=== PATIENT | female | born 1955 | race Hispanic/Latino ===

== ENCOUNTER 2022-03-14 15:26 | Emergency (ER) | payer MEDICARE, OTHER ==
[~2022-03-14] VITALS: Ht 152.4 cm; Wt 77.1 kg
[2022-03-14 16:24] LABS: BASOPHILS % (AUTO) 0.1 % (0.0-5.0); HEMATOCRIT 31.7 % (36-48); LYMPHOCYTES % (AUTO) 5.9 % (21.0-51.0); MEAN CORPUSCULAR HEMOGLOBIN 31.5 pg (27.0-33.0); MEAN CORPUSCULAR HGB CONC 33.1 g/dL (32.0-36.0); MEAN CORPUSCULAR VOLUME 95.2 fL (79-99); NEUTROPHILS % (AUTO) 83.3 % (40.0-77.0); PLATELET COUNT (AUTO) 62 K/uL (130-400); RED BLOOD CELL COUNT(AUTO) 3.33 MIL/uL (4.00-5.50); RED CELL DISTRIBUTION WIDTH 13.9 % (11.0-15.5); WHITE BLOOD COUNT (AUTO) 10.3 K/uL (4.8-10.8)
[2022-03-14 16:42] LABS: CREATININE 1.1 mg/dL (0.5-1.5); POTASSIUM 4.1 mmol/L (3.5-5.1)
[2022-03-14 16:50] LABS: ALBUMIN 3.1 g/dL (3.5-5.0); TOTAL PROTEIN, SERUM 6.5 g/dL (6.0-8.3)
[2022-03-14 16:51] VITALS: BP 116/59
[2022-03-14 18:21] LABS: APPEARANCE,URINE TURBID (CLEAR); BILIRUBIN,URINE NEGATIVE (NEGATIVE); COLOR,URINE LIGHT-ORANGE (YELLOW); GLUCOSE, URINE (UA) NEGATIVE (NEGATIVE); KETONES,URINE NEGATIVE (NEGATIVE); LEUKOCYTE ESTERASE ,URINE 500 Leu/uL (NEGATIVE); NITRATE,URINE NEGATIVE (NEGATIVE); OCCULT BLOOD,URINE MODERATE (NEGATIVE); PH,URINE 5.5 (5.0-8.0); PROTEIN,URINE 50 mg/dL (NEGATIVE); UROBILINOGEN,URINE 0.2 mg/dL (0.2-1.0)
[2022-03-14 18:28] LABS: BACTERIA,URINE FEW /HPF (None Seen); MUCUS,URINE RARE LPF (None Seen); SQUAMOUS EPITHELIAL CELL,UR RARE /HPF (0-2); TRANSITIONAL EPI CELLS,URINE FEW /HPF (None Seen); WBC,URINE TNTC /HPF (0-1)
[2022-03-14] MEDS ORDERED: DOCU-116 PO (19:05)
[2022-03-14] MEDS ORDERED: PANT40TA55 PO (19:05)
== END 2022-03-14 19:18 | disposition home or self-care (01) ==
LOC: EDH 15:26
DX: K59.00 Constipation, unspecified (principal); K52.9 Noninfective gastroenteritis and colitis, unspecified; Z20.822 Contact with and (suspected) exposure to COVID-19; E11.9 Type 2 diabetes mellitus without complications; Z79.899 Other long term (current) drug therapy
CPT/HCPCS: 99284; 74176; 71045; 87635; 84484; 80053; 82140; 85025; 87077; 87088; 87186; 87804 ×2; 81001; 36415; 93005 ×2; C9803

== ENCOUNTER → 2024-01-17 | Outpatient (CLI) | payer OTHER, MEDICARE ==
[~2024-01-17] MED LIST: DOCU-116 PO; IOHEXOL 350 MG/ML 100ML INFUS..BTL IV ONE; PANT40TA55 PO
--- NOTE | 2024-01-17 12:08 | HMCIMG ---
CT ABDOMEN/PELVIS W/WO CONTRAS REASON: LOWER ABD PAIN COMPARISON: 03/14/2022 TECHNIQUE: Images are obtained from lung bases to symphysis pubis following IV contrast, 100 cc Omnipaque 350. Oral contrast was demonstrated as well. FINDINGS: Lung bases are clear. There are no focal liver lesions. There are normal-appearing kidneys.. There is moderate splenomegaly, unchanged. Pancreas appears unremarkable. There has been a previous cholecystectomy. Bowel loops appear unremarkable. This includes particular attention to the rectosigmoid colon. There has been a previous appendectomy. There is no evidence of free fluid or intraperitoneal air. There are no focal fluid collections. Aorta and retroperitoneum appear normal as do pelvic soft tissue structures. The anterior abdominal wall is intact. Osseous structures appear unremarkable. IMPRESSION: 1. Splenomegaly, unchanged. 2. Absent gallbladder and appendix. 3. Otherwise unremarkable postcontrast CT abdomen and pelvis. CT was performed with one or more following dose reduction techniques: automated exposure control, adjustment of the mA and kv according to patient's size, or use of a iterative reconstruction technique.
== END | disposition home or self-care (01) ==
LOC: RAH 08:46
PROVIDERS: ATTEND Internal Medicine Gastroenterology
DX: R16.1 Splenomegaly, not elsewhere classified (principal); R10.30 Lower abdominal pain, unspecified; Z90.49 Acquired absence of other specified parts of digestive tract
CPT/HCPCS: 74178; Q9967

== ENCOUNTER 2024-06-13 05:43 | Day surgery (SDC) | payer OTHER, MEDICARE ==
[2024-06-13] VITALS (12 sets, daily range): BP systolic 100–159; BP diastolic 51–88; PULSE 61–72; RESP 14–20; TEMP 97.1–97.6
[~2024-06-13] VITALS: Ht 152.4 cm; Wt 88.5 kg
[~2024-06-13 05:43] MED LIST changes: -IOHEXOL 350 MG/ML 100ML INFUS..BTL IV ONE
[2024-06-13] MEDS: 0.9%NACL 1000ML 1,000 ML IV ONE (06:29)
[2024-06-13] MEDS ORDERED: ONDA-104 PO (06:35)
[2024-06-13] MEDS ORDERED: BENZ200C53 PO (06:35)
[2024-06-13] MEDS ORDERED: LINA145C PO (06:35)
[2024-06-13] MEDS ORDERED: ACET-2247 PO (06:35)
[2024-06-13] MEDS ORDERED: LACT-441 PO (06:35)
[2024-06-13] MEDS ORDERED: DICL100G60 TP (06:35)
[2024-06-13] MEDS ORDERED: LOSA25TA41 PO (06:35)
[2024-06-13] MEDS ORDERED: ASCO500C18 PO (06:35)
[2024-06-13] MEDS ORDERED: ALEN70TA80 PO (06:35)
[2024-06-13] MEDS ORDERED: FLUT16H NS (06:35)
[2024-06-13] MEDS ORDERED: proPOFol 10 MG/ML 20ML VIAL IV ONE (07:52)
--- NOTE | 2024-06-13 09:42 | NUR ---
Full and complete discharge instructions given to Patient and Family both verbally and in writing. Explained GI procedure precautions and follow up. All questions answered. PIV removed with catheter tip intact. Home with Family W/C to POV.
== END 2024-06-13 09:35 | disposition home or self-care (01) ==
LOC: ENDO 05:43 → DAH 05:43 → ENDO 09:35
PROVIDERS: ATTEND Internal Medicine Gastroenterology
DX: R10.30 Lower abdominal pain, unspecified (principal); D12.3 Benign neoplasm of transverse colon; D12.2 Benign neoplasm of ascending colon; K62.1 Rectal polyp; K57.30 Diverticulosis of large intestine without perforation or abscess without bleeding; K62.89 Other specified diseases of anus and rectum; I10 Essential (primary) hypertension; K29.90 Gastroduodenitis, unspecified, without bleeding; K74.60 Unspecified cirrhosis of liver; I85.10 Secondary esophageal varices without bleeding; E66.09 Other obesity due to excess calories; Z68.37 Body mass index [BMI] 37.0-37.9, adult; Z90.49 Acquired absence of other specified parts of digestive tract; Z90.710 Acquired absence of both cervix and uterus; Z79.899 Other long term (current) drug therapy
CPT/HCPCS: 45380; 45385; J7030; J2704; A4620; A4215; J3490

== ENCOUNTER 2024-07-03 11:45 | Inpatient (IN) | payer OTHER, MEDICARE ==
[~2024-07-03] VITALS: Ht 152.4 cm; Wt 88.7 kg
[~2024-07-03 11:45] MED LIST changes: +ACET-2247 PO; +ALEN70TA80 PO; +ASCO500C18 PO; +BENZ200C53 PO; +CIPR500T10 PO; +DICL100G60 TP; -DOCU-116 PO; +FLUT16H NS; +LACT-441 PO; +LINA145C PO; +LOSA25TA41 PO; +ONDA-104 PO; -PANT40TA55 PO
[2024-07-03 12:15] LABS: BASOPHILS # (AUTO) 0.01 K/uL (0.00-0.20); BASOPHILS % (AUTO) 0.4 % (0.0-5.0); EOSINOPHILS # (AUTO) 0.08 K/uL (0.00-0.70); EOSINOPHILS % (AUTO) 3.4 % (0.0-8.0); HEMATOCRIT 34.5 % (36-48); IMMATURE GRANULOCYTE ABSOLUTE 0.01 K/uL (0-1); LYMPHOCYTES # (AUTO) 0.5 K/uL (1.0-4.8); LYMPHOCYTES % (AUTO) 22.8 % (21.0-51.0); MEAN CORPUSCULAR HEMOGLOBIN 28.7 pg (27.0-33.0); MEAN CORPUSCULAR HGB CONC 32.5 g/dL (32.0-36.0); MEAN CORPUSCULAR VOLUME 88.5 fL (79-99); MONOCYTES # (AUTO) 0.2 K/uL (0.1-1.0); MONOCYTES % (AUTO) 10.1 % (3.0-13.0); NEUTROPHILS # (AUTO) 1.5 K/uL (1.8-7.7); NEUTROPHILS % (AUTO) 62.9 % (40.0-77.0); PLATELET COUNT (AUTO) 45 K/uL (130-400); RED CELL DISTRIBUTION WIDTH 14.1 % (11.0-15.5); WHITE BLOOD COUNT (AUTO) 2.4 K/uL (4.8-10.8)
[2024-07-03 12:46] LABS: CREATININE 0.9 mg/dL (0.5-1.0)
[2024-07-03 13:29] LABS: RAPID GROUP A STREP negative (NEGATIVE)
--- NOTE | 2024-07-03 13:36 | EKG ---
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
[2024-07-03 13:39] LABS: COVID19 (SARS ANTIGEN RAPID) PRESUMPTIVE NEGATIVE (NEGATIVE)
[2024-07-03 13:40] LABS: INFLUENZA TYPE A Negative For Type A (NEGATIVE); INFLUENZA TYPE B Negative For Type B (NEGATIVE)
[2024-07-03 13:45] LABS: BAND NEUTROPHILS % (MANUAL) 5 % (0-2); BASOPHILS % (MANUAL) 3 % (0-2); EOSINOPHILS % (MANUAL) 5 % (1-6); LYMPHOCYTES % (MANUAL) 20 % (22-44); MONOCYTES % (MANUAL) 6 % (2-9); SEGMENTED NEUTROPHILS % 61 % (40-70); TOTAL CELLS COUNTED 100
[2024-07-03 13:46] LABS: MAN.DIFF COMMENT-IMPRESSION MANUAL DIFFERENTIAL; PLATELET MORPHOLOGY COMMENT MARKED DECREASE; WBC MORPHOLOGY CONSISTENT W/DIFF
[2024-07-03 14:26] LABS: APPEARANCE,URINE CLEAR (CLEAR); BILIRUBIN,URINE NEGATIVE (NEGATIVE); COLOR,URINE LIGHT-YELLOW (YELLOW); GLUCOSE, URINE (UA) NEGATIVE (NEGATIVE); KETONES,URINE NEGATIVE (NEGATIVE); LEUKOCYTE ESTERASE ,URINE NEGATIVE Leu/uL (NEGATIVE); NITRATE,URINE NEGATIVE (NEGATIVE); OCCULT BLOOD,URINE NEGATIVE (NEGATIVE); PH,URINE 6.5 (5.0-8.0); PROTEIN,URINE NEGATIVE (NEGATIVE); UROBILINOGEN,URINE 0.2 mg/dL (0.2-1.0)
[2024-07-03 14:28] LABS: RBC,URINE 0-1 /HPF (0-1); WBC,URINE 0-1 /HPF (0-1)
--- NOTE | 2024-07-03 14:41 | HMCIMG ---
CHEST 1VW HISTORY: Cough COMPARISON: 03/14/2022 FINDINGS: A frontal projection of the chest was obtained. Mild bilateral pulmonary infiltrates are seen may be related to mild pulmonary vascular congestion with possible superimposed pneumonitis. The heart is borderline enlarged. Degenerative changes are seen. No evidence of aortic calcification is seen. IMPRESSION: 1. Mild bilateral pulmonary infiltrates are seen may be related to mild pulmonary vascular congestion with possible superimposed pneumonitis.
[2024-07-03] MEDS: cefTRIAXone 1G VIAL IVPB ONE (15:13)
[2024-07-03] MEDS: AZITHROMYCIN 500MG+NS 250ML 250 ML IVPB ONE (15:14)
[2024-07-03] MEDS ORDERED: IpraTROPium/alBUTERol SULFATE 3 ML SOLUTION IH SCH (15:30)
[2024-07-03] MEDS ORDERED: BUDESONIDE 0.5 MG/2 ML INH IH SCH (15:30)
--- NOTE | 2024-07-03 15:32 | ERN ---
General Chief Complaint: Numbness Stated Complaint: NUMBNESS TO RIGHT ARM Time Seen by MD: 11:52 Time Seen by Midlevel: 11:52 Source: patient History of Present Illness Initial Comments 69-year-old female who presents to the emergency department due to SOB. She reports sore throat, productive cough, chest congestion, subjective fever, occasional tingling sensation to the right arm. Denies any chest pain, abdominal pain or further associated symptoms. PMHx cirrhosis, HTN Allergies: Coded Allergies: No Known Drug Allergies (Unverified Allergy, Unknown, 03/14/22) Home Meds Reported Medications Ascorbic Acid (Vitamin C) 500 Mg Capsule, 1 CAP PO DAILY for 28 Days, #28 CAP 0 Refills 06/13/24 Acetaminophen (Tylenol) 325 Mg Tablet, 1 TAB PO Q4HPRN PRN for pain or fever for 5 Days, #30 TAB 0 Refills 06/13/24 Ondansetron HCl (Ondansetron HCl) 4 Mg Tablet, 1 TAB PO Q4HPRN PRN for n ausea/vomiting for 3 Days, #18 TAB 0 Refills 06/13/24 Losartan Potassium (Losartan Potassium) 25 Mg Tablet, 1 TAB PO DAILY for 30 Days, #30 TAB 0 Refills 06/13/24 Linaclotide (Linzess) 145 Mcg Capsule, 1 CAP PO DAILY for 30 Days, #30 CAP 0 Refills 06/13/24 Lactulose (Lactulose) 10 Gram/15 Ml Solution, 30 ML PO BID for constipation, #500 ML 0 Refills 06/13/24 Fluticasone Propionate (Flonase Nasal Volin) 50 Mcg/Actuation Volin, 2 SPRAY NS DAILY, #16 GM 0 Refills 06/13/24 Diclofenac Sodium (Diclofenac Sodium) 1 % Gel..gram., 1 APPL TP QID for 21 Days, #100 GM 0 Refills 06/13/24 Benzonatate (Benzonatate) 200 Mg Capsule, 1 CAP PO AM PRN for cough for 7 Days, #21 CAP 0 Refills 06/13/24 Alendronate Sodium (Alendronate Sodium) 70 Mg Tablet, 1 TAB PO QWEEK for 28 Days, #4 TAB 0 Refills in the morning, at least 30 minutes before the first food, beverage, or medication of the day 06/13/24 Past Medical History Past Medical History: Diabetes-Type II, Other Medical History Other: CIRRHOSIS Past Surgical History: None ROS Dictation Constitutional: Positive for subjective fever, Negative for chills, and weight loss Eyes: Negative for injury, pain,redness, and discharge ENT: Positive for congestion, sore throat Negative for injury,pain or swelling Cardiovascular: Negative for chest pain, palpitations, and edema Respiratory: Positive for productive cough, SOB Negative for wheezing Abdomen/GI: Negative for abdominal pain, nausea, vomiting, diarrhea, and constipation Back: Negative for injury and pain : Negative for painful urination, bleeding or discharge MS/Extremity: Negative for injury and deformity Skin: Negative for rash, and discoloration Neuro: Positive for right arm tingling Negative for headache, weakness, numbness, and seizure Psych: Negative for suicide ideation, homicidal ideation, and hallucinations Physical Exam Physical Exam Dictation General: awake, alert, no acute distress Head/Face: Normocephalic, atraumatic Eyes: PERRL, EOMI, normal conjunctiva ENT: oral cavity clear, oral mucosa moist Neck: Supple, normal range of motion Cardiovascular: RRR, normal S1/S2 Respiratory: CTAB, no respiratory distress, mild crackles auscultated bilaterally Abdomen: Soft, non-tender, non-distended, no guarding or rebound. Skin: Warm, dry, normal turgor, no rash MS/Extremity: Pulses equal, no cyanosis, neurovascular intact, FROM Neuro: COAx4, GCS 15, strength 5/5, CN 2-12 intact, normal cerebellar exam, normal gait Psych: Normal behavior, mood, and affect normal Results Laboratory and Microbiology Lab and Micro Result Laboratory Tests Test 07/03/24 12:07 07/03/24 12:55 07/03/24 14:12 White Blood Count 2.4 K/uL (4.8-10.8) L Red Blood Count 3.90 MIL/uL (4.00-5.50) L Hemoglobin 11.2 g/dL (12.0-16.0) L Hematocrit 34.5 % (36-48) L Mean Corpuscular Volume 88.5 fL (79-99) Mean Corpuscular Hemoglobin 28.7 pg (27.0-33.0) Mean Corpuscular Hemoglobin Concent 32.5 g/dL (32.0-36.0) Red Cell Distribution Width 14.1 % (11.0-15.5) Platelet Count 45 K/uL (130-400) L Mean Platelet Volume 12.0 fL (7.5-10.5) H Immature Granulocyte % (Auto) 0.4 % (0-1) Neutrophils (%) (Auto) 62.9 % (40.0-77.0) Lymphocytes (%) (Auto) 22.8 % (21.0-51.0) Monocytes (%) (Auto) 10.1 % (3.0-13.0) Eosinophils (%) (Auto) 3.4 % (0.0-8.0) Basophils (%) (Auto) 0.4 % (0.0-5.0) Neutrophils # (Auto) 1.5 K/uL (1.8-7.7) L Lymphocytes # (Auto) 0.5 K/uL (1.0-4.8) L Monocytes # (Auto) 0.2 K/uL (0.1-1.0) Eosinophils # (Auto) 0.08 K/uL (0.00-0.70) Basophils # (Auto) 0.01 K/uL (0.00-0.20) Absolute Immature Granulocyte (auto 0.01 K/uL (0-1) Segmented Neutrophils % 61 % (40-70) Band Neutrophils % 5 % (0-2) H Lymphocytes % (Manual) 20 % (22-44) L Monocytes % (Manual) 6 % (2-9) Eosinophils % (Manual) 5 % (1-6) Basophils % (Manual) 3 % (0-2) H Nucleated Red Blood Cells 0.0 % (0.0-0.19) Differential Comment MANUAL DIFFERENTIAL White Cell Morphology Comment CONSISTENT W/DIFF Platelet Morphology Comment MARKED DECREASE Red Blood Cell Morphology See comments Erythrocyte Sedimentation Rate 18 MM/HR (0-30) Sodium Level 137 mmol/L (136-145) Potassium Level 4.0 mmol/L (3.5-5.1) Chloride Level 104 mmol/L (101-111) Carbon Dioxide Level 26 mmol/L (21-32) Blood Urea Nitrogen 18 mg/dL (7-18) Creatinine 0.9 mg/dL (0.5-1.0) Glomerular Filtration Rate Calc 70 mL/min (>90) Random Glucose 114 mg/dL (70-105) H Total Calcium 8.5 mg/dL (8.5-10.1) Total Bilirubin 0.4 mg/dL (0.2-1.0) Direct Bilirubin 0.2 mg/dL (0.0-0.3) Aspartate Amino Transf (AST/SGOT) 55 U/L (10-37) H Alanine Aminotransferase (ALT/SGPT) 41 U/L (12-78) Alkaline Phosphatase 140 U/L (50-136) H Lactate Dehydrogenase 155 U/L (81-234) Troponin I High Sensitivity 6 ng/L (4-50) C-Reactive Protein, Quantitative 1.40 mg/L (0.5-3.0) Total Protein 7.8 g/dL (6.0-8.3) Albumin 3.2 g/dL (3.5-5.0) L Procalcitonin < 0.05 ng/mL (0.05-0.5) L Influenza Type A Antigen Negative For Type A Influenza Type B Antigen Negative For Type B SARS-CoV-2 Antigen (Rapid) PRESUMPTIVE NEGATIVE Group A Streptococcus Rapid negative (NEGATIVE) Urine Color LIGHT-YELLOW (YELLOW) Urine Appearance CLEAR (CLEAR) Urine pH 6.5 (5.0-8.0) Urine Specific [place] 1.008 (1.001-1.031) Urine Protein NEGATIVE mg/dL (NEGATIVE) Urine Glucose (UA) NEGATIVE mg/dL (NEGATIVE) Urine Ketones NEGATIVE mg/dL (NEGATIVE) Urine Occult Blood NEGATIVE (NEGATIVE) Urine Nitrate NEGATIVE (NEGATIVE) Urine Bilirubin NEGATIVE mg/dL (NEGATIVE) Urine Urobilinogen 0.2 mg/dL (0.2-1.0) Urine Leukocyte Esterase NEGATIVE [place]/uL Urine RBC 0-1 /HPF (0-1) Urine WBC 0-1 /HPF (0-1) Urine Bacteria None /HPF (None Seen) Labs Reviewed?: Yes EKG/XRAY/US/CT/MRI X-RAY Comment REASON: Cough ORDERING PHYSICIAN: RADHA HENDRIX PROCEDURE: CXR1VW - CHEST 1VW CHEST 1VW HISTORY: Cough COMPARISON: 03/14/2022 FINDINGS: A frontal projection of the chest was obtained. Mild bilateral pulmonary infiltrates are seen may be related to mild pulmonary vascular congestion with possible superimposed pneumonitis. The heart is borderline enlarged. Degenerative changes are seen. No evidence of aortic calcification is seen. IMPRESSION: 1. Mild bilateral pulmonary infiltrates are seen may be related to mild pulmonary vascular congestion with possible superimposed pneumonitis. DICTATED BY: BRIGID GURROLA MD DATE: 07/03/24 1432 [facility] MDM: Differential diagnosis: Pneumonia, viral illness, influenza Rationale: 69-year-old female who presents to the emergency department due to SOB. She reports sore throat, productive cough, chest congestion, subjective fever, occasional tingling sensation to the right arm. Denies any chest pain, abdominal pain or further associated symptoms. PMHx cirrhosis, HTN Per physical examination mild crackles auscultated bilaterally, patient is in no acute distress, nonlabored breathing, nontoxic appearing, neurologically intact. NIH score 0. Labs obtained indicate WBCs of 2.4, mild anemia with hemoglobin of 11.2, troponin within normal limits. UA negative for urinary tract infection. Serology negative for influenza, SARs, strep. Chest x-ray indicates bilateral pulmonary infiltrates. Patient received ceftriaxone and azithromycin in the ED. patient was educated on findings, diagnosis, decision for admission. Patient verbalized understanding and agrees with admission. Case discussed with hospitalist who accepted admission. Previous outside records reviewed: Old ER visits. Risk of complication and/or morbidity or mortality of patient management: None Medications-Per medication reconciliation Need for hospitalization: Patient does meet criteria for hospitalization. Need for emergency major/minor surgery: No There are no social concerns with this patient. Prescription drug management Prescriptions will include symptomatic care Patient's prior external medical records from other ER visits were reviewed by me as indicated. Prior testing and results from previous visits were reviewed. Prior tests were taken into account with medical decision making and resource utilization, independent historian/historians were used to obtain complete medical history. I independently interpreted the test that were performed, results were reviewed by me and considered findings on radiology if ordered. Medical management and examination interpretation discussions were had by me with other qualified healthcare professionals as indicated for the patient's care. ED Course Orders Procedure Category Date Status Time Cbc With Differential LAB 07/03/24 Complete 11:51 Basic Metabolic Panel LAB 07/03/24 Complete 11:51 Urinalysis LAB 07/03/24 Complete W/Microscopic 11:51 Chest 1vw RAD 07/03/24 Resulted 11:51 Rapid (Group A Strep) LAB 07/03/24 Complete 11:51 Influenza Type A & B, LAB 07/03/24 Complete Rapid 11:51 Covid19 (Sars Antigen LAB 07/03/24 Complete Rapid) 11:51 Troponin I High LAB 07/03/24 Complete Sensitivity 11:51 12 Lead Ekg Tracing- EKG 07/03/24 Resulted Technical 11:51 Manual Differential LAB 07/03/24 Complete 12:07 Ceftriaxone 1g Vial PHA 07/03/24 Complete (Rocephine 1g Inj) 15:00 Azithromycin 500mg+Ns PHA 07/03/24 Complete 250ml (Azithromyci 15:30 Current Medications Medications (Trade) Dose Ordered Sig/Taylor Route PRN Reason Start Time Stop Time Status Last Admin Dose Admin Ceftriaxone Sodium (ROCEphine 1G INJ) 1 gm ONCE ONCE IVPB 07/03/24 15:00 07/03/24 15:01 DC 07/03/24 15:13 Vital Signs Date Time Temp Pulse Resp B/P (MAP) Pulse Ox O2 Delivery O2 Flow Rate FiO2 07/03/24 15:00 97.5 72 18 162/65 96 Room Air* 0 21 07/03/24 13:40 72 18 142/50 98 Room Air* 0 21 07/03/24 11:47 97.5 75 18 135/60 96 Room Air DX & DISP Disposition: Inpatient Decision to Admit Date: Jul 03, 2024 Departure Impression: Primary Impression: Bilateral pneumonia Condition: Stable Referrals: NOEL BRANTLEY (PCP) I performed the substantive portion of the visit. I have reviewed and personally made and approve the management plan that is documented in the notes by myself or the BAO. I acknowledge full responsibility for the patient's management plan. RADHA HENDRIX Jul 03, 2024 15:32
--- NOTE | 2024-07-03 15:47 | HP ---
[facility] HISTORY [facility] PHYSICAL Date of Service: Jul 03, 2024 Time of Service: 15:47 HISTORY OF PRESENT ILLNESS: Date of service: 07/03/2024, patient was seen in ER room three 69-year-old female with underlying history of obesity, cirrhosis of the liver (diagnosed about two years ago), hypertension who presented to the ER for further evaluation of shortness of breath and productive cough with greenish phl egm ongoing for the past 2-3 days. Symptoms have been progressive and patient reports having fevers, at home. Shortness of breath is worse with ambulation as well. She reports having chest pain with cough as well. Patient also reports that over the last three days, she has noticed numbness involving the right upper extremity. She denies any significant weakness of the right upper extremity. Denies any numbness or weakness of her other extremities. She denies any previous history of stroke. Reports being diagnosed with liver cirrhosis but she is unsure of the cause of liver cirrhosis, likely fatty liver disease. She denies any significant alcohol use. She is followed by Dr. Wilburn with GI as outpatient. Denies any previous history of variceal bleed or hematemesis. Denies any hematochezia or melena. She reports being on lactulose as outpatient. On presentation to the hospital, patient was noted to be afebrile with T-max of 97.5 F, heart rate of 75, blood pressure 135/60. Labs on presentation showed WBC count of 2400, hemoglobin of 9.2, [place] [address]. BMP remarkable for sodium of 137, potassium 4.0, BUN of 26, creatinine of 0.9, ammonia of 59. Chest x-ray showed possible bilateral infiltrates. Patient will be admitted for further treatment and management of concerns for developing community-acquired pneumonia especially in the setting of liver cirrhosis and leukopenia. Respiratory cultures will be obtained. With regards to right upper extremity numbness, CT head will be obtained and consultation with tele neurology as well. We will see how patient progresses in the next 48- 72 hours. We will monitor closely for signs of bleeding and patient will continue with scheduled dose of lactulose. REVIEW OF SYSTEMS CONSTITUTIONAL: Denies fevers, chills, or night sweats. No unintentional weight loss reported. NEUROLOGICAL: Denies headache, amaurosis fugax, motor weakness, sensory deficit, vertigo/spinning sensation, gait abnormalities, or tremors. ENT: No hearing loss, otalgia, otorrhea, rhinitis, rhinorrhea, hoarseness, or sore throat. CARDIOVASCULAR: Denies any exertional angina, dyspnea on exertion, orthopnea, paroxysmal nocturnal dyspnea, palpitations, life-threatening arrhythmias, claudication. PULMONARY: Shortness of breath, productive cough with greenish sputum SLEEP: Denies morning headaches, daytime somnolence or napping. Denies difficulty falling asleep, staying asleep, waking from sleep. Denies knowledge of snoring. GASTROINTESTINAL: Reports having history of liver cirrhosis GENITOURINARY: Denies frequency, urgency, nocturia, hematuria or incontinence (Storage/Irritative symptoms.) Low urinary stream, straining to void, urinary intermittency or hesitancy, splitting of the voiding stream, terminal dribbling. ENDOCRINOLOGIC: Denies polyuria, polydipsia, polyphagia or heat/cold intolera nces. HEMATOLOGIC: Denies thrombophilia/previous clots, or coagulopathy/bleeding disorders. ONCOLOGIC: Denies personal history of malignancy. DERMATOLOGIC: Denies rashes or pruritus. PSYCHIATRIC: Denies any suicidal or homicidal ideation. Denies hallucinations. PAST MEDICAL HISTORY: Hypertension, liver cirrhosis, chronic thrombocytopenia PAST SURGICAL HISTORY: Reports previous history of colonoscopy PAST SOCIAL HISTORY: Patient denies active smoking or alcohol consumption. Denies any secondhand exposure to smoking. Denies any prior alcohol intake. Denies any illicit drug use. Independent with ADLs and IADLs FAMILY HISTORY: Denies pertinent family history Allergies: No known drug allergies Home medications: No home medications available at bedside to be reconciled, discussed with nursing staff to obtain home medication list as soon as possible so it can be reconciled Coded Allergies: No Known Drug Allergies (Unverified Allergy, Unknown, 03/14/22) PHYSICAL EXAM GENERAL APPEARANCE: The patient is awake, alert, and oriented, in no acute cardiopulmonary distress. NEUROLOGICAL: Cranial nerves II-XII grossly intact. Motor is 5/5 in bilateral upper and lower extremities proximal to distal. No sensory deficits. HEENT: Face is symmetric. Pupils are equal and reactive. Extraocular movements are intact. NECK: Supple. No JVD. No thyromegaly. No submental, submandibular, pre- /postauricular, occipital or supraclavicular lymphadenopathy. CHEST: Normal chest expansion. No Telemetry. LUNGS: Minimal crackles noted at bilateral lung bases with rhonchorous breath sounds CARDIOVASCULAR: Regular. S1 and S2 normal. No appreciable rubs, murmurs or gallops. ABDOMEN: Soft, nontender, and nondistended. There is no rebound, voluntary guarding, or rigidity. : Deferred. No Wagoner. EXTREMITIES: Non-edematous and not cyanotic. No clubbing. Good capillary refill. SKIN: No skin breakdown. Vital Sign (Last 24 Hours) 07/03/24 15:00 Temp 97.5 Pulse 72 Resp 18 B/P (MAP) 162/65 Pulse Ox 96 O2 Delivery Room Air* O2 Flow Rate 0 FiO2 21 LABS: Laboratory: Test 07/03/24 14:12 07/03/24 12:55 07/03/24 12:07 Range/Units Urine Color LIGHT-YELLOW YELLOW Urine Appearance CLEAR CLEAR Urine pH 6.5 5.0-8.0 Urine Specific [place] 1.008 1.001-1.031 Urine Protein NEGATIVE NEGATIVE mg/dL Urine Glucose (UA) NEGATIVE NEGATIVE mg/dL Urine Ketones NEGATIVE NEGATIVE mg/dL Urine Occult Blood NEGATIVE NEGATIVE Urine Nitrate NEGATIVE NEGATIVE Urine Bilirubin NEGATIVE NEGATIVE mg/dL Urine Urobilinogen 0.2 0.2-1.0 mg/dL Urine Leukocyte Esterase NEGATIVE NEGATIVE Kehinde/uL Urine RBC 0-1 0-1 /HPF Urine WBC 0-1 0-1 /HPF Urine Bacteria None None Seen /HPF Influenza Type A Antigen Negative For Type A NEGATIVE Influenza Type B Antigen Negative For Type B NEGATIVE SARS-CoV-2 Antigen (Rapid) PRESUMPTIVE NEGATIVE NEGATIVE Group A Streptococcus Rapid negative NEGATIVE White Blood Count 2.4 L 4.8-10.8 K/uL Red Blood Count 3.90 L 4.00-5.50 MIL/uL Hemoglobin 11.2 L 12.0-16.0 g/dL Hematocrit 34.5 L 36-48 % Mean Corpuscular Volume 88.5 79-99 fL Mean Corpuscular Hemoglobin 28.7 27.0-33.0 pg Mean Corpuscular Hemoglobin Concent 32.5 32.0-36.0 g/dL Red Cell Distribution Width 14.1 11.0-15.5 % Platelet Count 45 L 130-400 K/uL Mean Platelet Volume 12.0 H 7.5-10.5 fL Immature Granulocyte % (Auto) 0.4 0-1 % Neutrophils (%) (Auto) 62.9 40.0-77.0 % Lymphocytes (%) (Auto) 22.8 21.0-51.0 % Monocytes (%) (Auto) 10.1 3.0-13.0 % Eosinophils (%) (Auto) 3.4 0.0-8.0 % Basophils (%) (Auto) 0.4 0.0-5.0 % Neutrophils # (Auto) 1.5 L 1.8-7.7 K/uL Lymphocytes # (Auto) 0.5 L 1.0-4.8 K/uL Monocytes # (Auto) 0.2 0.1-1.0 K/uL Eosinophils # (Auto) 0.08 0.00-0.70 K/uL Basophils # (Auto) 0.01 0.00-0.20 K/uL Absolute Immature Granulocyte (auto 0.01 0-1 K/uL Segmented Neutrophils % 61 40-70 % Band Neutrophils % 5 H 0-2 % Lymphocytes % (Manual) 20 L 22-44 % Monocytes % (Manual) 6 2-9 % Eosinophils % (Manual) 5 1-6 % Basophils % (Manual) 3 H 0-2 % Nucleated Red Blood Cells 0.0 0.0-0.19 % Differential Comment MANUAL DIFFERENTIAL White Cell Morphology Comment CONSISTENT W/DIFF Platelet Morphology Comment MARKED DECREASE Red Blood Cell Morphology See comments Sodium Level 137 136-145 mmol/L Potassium Level 4.0 3.5-5.1 mmol/L Chloride Level 104 101-111 mmol/L Carbon Dioxide Level 26 21-32 mmol/L Blood Urea Nitrogen 18 7-18 mg/dL Creatinine 0.9 0.5-1.0 mg/dL Glomerular Filtration Rate Calc 70 >90 mL/min Random Glucose 114 H 70-105 mg/dL Total Calcium 8.5 8.5-10.1 mg/dL Troponin I High Sensitivity 6 4-50 ng/L Current Medications Medications (Trade) Dose Ordered Sig/Taylor Route PRN Reason Start Time Stop Time Status Last Admin Dose Admin Acetaminophen (TYLenol 325MG TAB) 650 mg Q6H PRN PO MILD PAIN (1-3) 07/03/24 16:00 08/02/24 15:59 Albuterol (DUOneb) 1 udvial [id number] IH 07/03/24 15:30 08/02/24 15:29 Budesonide (Pulmicort 0.5 Mg/2ml) 0.5 mg BIDRESP IH 07/03/24 15:30 08/02/24 15:29 Cefepime HCl (MAXipime 2 gm vial) 2 gm Q12H IVPB 07/03/24 18:00 07/13/24 17:59 Lactated Ringer's 1,000 ml @ 75 mls/hr [id number] IV 07/03/24 16:00 08/02/24 15:59 Multivitamins Therapeutic (Multivitamin Tablet) 1 tab DAILY PO 07/04/24 09:00 08/03/24 08:59 Ondansetron HCl (zoFRAN 4MG INJ) 4 mg Q6H PRN IVP NAUSEA/VOMITING 07/03/24 16:00 08/02/24 15:59 Pantoprazole Sodium (PROTonix 40MG INJ) 40 mg Q24H IVP 07/03/24 16:00 08/02/24 15:59 Thiamine HCl (Vitamin B-1) 100 mg Q24H IVP 07/03/24 16:00 08/02/24 15:59 DIAGNOSTICS / RADIOLOGY: SERVICE 1151 REASON: Cough ORDERING PHYSICIAN: RADHA HENDRIX PROCEDURE: CXR1VW - CHEST 1VW CHEST 1VW HISTORY: Cough COMPARISON: 03/14/2022 FINDINGS: A frontal projection of the chest was obtained. Mild bilateral pulmonary infiltrates are seen may be related to mild pulmonary vascular congestion with possible superimposed pneumonitis. The heart is borderline enlarged. Degenerative changes are seen. No evidence of aortic calcification is seen. IMPRESSION: 1. Mild bilateral pulmonary infiltrates are seen may be related to mild pulmonary vascular congestion with possible superimposed pneumonitis. DICTATED BY: BRIGID GURROLA MD DATE: 07/03/24 1438 ELECTRONICALLY SIGNED BY: BRIGID GURROLA MD DATE: 07/03/24 1441 ASSESSMENT: Developing community-acquired pneumonia, POA Leukopenia, POA Right upper extremity numbness x3 days, POA Underlying history of cirrhosis of the liver, POA Moderate thrombocytopenia secondary to underlying cirrhosis w/portal HTN, POA Obesity, POA Hypertension, POA Debility, POA PLAN: Patient will be admitted to medical-surgical floor under telemetry monitoring We will start IV antibiotics with cefepime/doxycycline, patient reports having productive cough in the setting of leukopenia and underlying cirrhosis, chest x- ray showed concerns for bilateral infiltrates We will follow up CT chest without contrast We will obtain respiratory culture,, mycoplasma serologies, urine Legionella and streptococcal antigen testing Patient has mild wheezing on examination, we will start patient on scheduled nebulizers and albuterol We will request consultation with pulmonology Patient is not showing signs of overt hepatic encephalopathy, we will start patient on lactulose 30 mL t.i.d., we will titrate so patient has at least three bowel movements daily, we will monitor mental status closely With regards to numbness involving the right upper extremity, we will follow up CT head without contrast, we will request associated tele neurology evaluation, we will see if Neurology requests MRI this admission for further workup this admission, pt also complaint of fhaving right shoulder pain, will f/u on X rays We will keep patient on IV lactated Ringer's 75 mL/hour times 24 hours Home medications will be reconciled and updated once available All labs will be repeated in the morning Date of service: 07/03/2024 Plan of care was discussed with patient at bedside, Ramón Field MD Advanced Care Planning: Which of the following were discussed: Hospice care: Yes __ No _X_ Therapeutic options: Yes _X_ No __ Advance directives: Yes _X_ No __ Other discussions: Discussed with who?: Patient Voluntary nature of this service was explained to the patient? Yes _x_ No __ Amount of time spent: 20 minutes RAMÓN FIELD MD Jul 03, 2024 15:47
[2024-07-03 15:57] LABS: ALBUMIN 3.2 g/dL (3.5-5.0); BILIRUBIN,DIRECT 0.2 mg/dL (0.0-0.3); BILIRUBIN,TOTAL 0.4 mg/dL (0.2-1.0); TOTAL PROTEIN, SERUM 7.8 g/dL (6.0-8.3)
[2024-07-03] MEDS ORDERED: acetaMINOPHEN 325 MG TAB PO PRN (16:00)
--- NOTE | 2024-07-03 16:11 | HMCIMG ---
CT HEAD/BRAIN W/O CONTRAST HISTORY: Right arm numbness COMPARISON: None TECHNIQUE: Multiple sequential axial images of the head were obtained from the base of the skull through vertex. Patient was not given contrast through intravenous route. FINDINGS: The ventricles and extraventricular CSF spaces are nondilated for patient's age. There is no midline shift, mass effect or herniation. No acute intracranial bleed is seen. Visualized portion of the paranasal sinuses are grossly within normal limits. IMPRESSION: 1. No acute intracranial bleed is seen. CT was performed with one or more following dose reduction techniques: automated exposure control, adjustment of the mA and kv according to patient's size, or use of a iterative reconstruction technique.
--- NOTE | 2024-07-03 16:16 | HMCIMG ---
CT CHEST W/O CONTRAST HISTORY: Cough and congestion COMPARISON: None TECHNIQUE: Multiple sequential axial images of the chest were obtained from the thoracic inlet through upper abdomen. Patient was not given contrast through intravenous route. FINDINGS: Minimal interstitial fibrotic changes are seen. There is no evidence of pulmonary nodule or parenchymal disease. No pleural effusion or pericardial effusion is seen. There is no evidence of pneumothorax. There are normal size mediastinal and hilar lymph nodes. The heart is not enlarged. Degenerative changes of the thoracolumbar spine are present. There is no evidence of adrenal nodule. IMPRESSION: 1. No evidence of pulmonary nodule or effusion is seen. Minimal interstitial fibrotic changes as CT was performed with one or more following dose reduction techniques: automated exposure control, adjustment of the mA and kv according to patient's size, or use of a iterative reconstruction technique.
--- NOTE | 2024-07-03 16:43 | NUR ---
SPEECH TRIGGER COMPLETED / SUSPECTED PNA. Pt IS A 69 Y.O. FEMALE ADMITTED SECONDARY TO SUSPECTED PNA AND SOB. Pt HAS A PAST MEDICAL HISTORY SIGNIFICANT FOR DIABETES TYPE 2 AND CIRRHOSIS. PATIENT PRESENTED WITH MILD BILATERAL PULMONARY INFILTRATES ON MOST RECENT CHEST X-RAY (07/03/2024). Pt CURRENTLY ON FULL LIQUID DIET (THIN LIQUIDS). PER NURSE JOSAFAT, NO CONCERNS OR REPORTS OF PATIENT WITH S/S OF ASPIRATION. PLEASE REQUEST SPEECH THERAPY SERVICES FOR SKILLED BEDSIDE SWALLOW EVALUATION IF Pt PRESENTS WITH +S/S OF ASPIRATION SUCH COUGH RESPONSE, THROAT CLEAR, OR WET VOCAL QUALITY DURING ORAL INTAKE. ALL QUESTIONS ANSWERED AT THIS TIME. Addendum: 07/03/[address] YULIET EWING Amended: Links added.
--- NOTE | 2024-07-03 16:47 | HMCIMG ---
US ABDOMINAL COMPLETE HISTORY: Cirrhosis COMPARISON: None TECHNIQUE: Multiple transverse and longitudinal ultrasound images of the abdomen were obtained. FINDINGS: Abdominal aorta is partially seen. Abdominal aorta and inferior vena cava are unremarkable. The visualized portion of the pancreas is within normal limits. Liver is echogenic consistent with liver parenchymal disease. The liver measures 16.6 cm. Gallbladder has been. Common duct measures 4 mm. Portal vein is patent. Both kidneys are seen. Right kidney measures 9.1 x 4.6 x 4.3 cm. Left kidney measures 9.1 x 3 x 4.3 cm. No hydronephrosis is seen of the both kidneys. Spleen enlarged measuring 17 cm. The spleen is grossly unremarkable. IMPRESSION: 1. Status post cholecystectomy. No ductal dilatation is seen. Enlarged spleen. 2. No hydronephrosis is seen.
[2024-07-03] MEDS: DOXYCYCLINE 100MG+NS 250ML 250 ML IV SCH (16:48)
[2024-07-03] MEDS: PANTOPrazole 40 MG/VIAL IVP SCH (16:48)
[2024-07-03] MEDS: LACTATED RINGERS 1000ML 1,000 ML IV SCH (16:48)
[2024-07-03] MEDS: THIAMINE HCL 100 MG/ML 2ML VIAL IVP SCH (16:48)
--- NOTE | 2024-07-03 17:04 | NUR ---
PT STATES SHE DOES NOT HAVE HER MEDS WITH HER AT THIS TIME
[2024-07-03] MEDS: ceFEPime HCL 2 GM VIAL IVPB SCH (19:06)
[2024-07-03] MEDS: SODIUM CHLORIDE 3% FOR INHALATION 4 ML/AMP VIAL.NEB IH ONE ×2 (20:07→23:29)
[2024-07-03] MEDS: IpraTROPium/alBUTERol SULFATE 3 ML SOLUTION IH SCH (20:07)
[2024-07-03] MEDS: BUDESONIDE 0.5 MG/2 ML INH IH SCH (20:07)
[2024-07-03 20:11] VITALS: PULSE 63; RESP 18
[2024-07-03 20:12] VITALS: PULSE 63; RESP 18; O2SAT 99
[2024-07-03] MEDS ORDERED: PoTASSium chloRIDE 20MEQ ER 20 MEQ ERTAB PO PRN (20:30)
[2024-07-03] MEDS ORDERED: PoTASSium chl 10% ELIXIR 20MEQ 20 MEQ/15 ML UDCUP PO PRN (20:30)
[2024-07-03] MEDS ORDERED: PoTASSium chloRIDE 20MEQ/100ML 100 ML IV PRN (20:30)
[2024-07-03] MEDS ORDERED: LACTULOSE 20 GM/30 ML UDCUP PO SCH (21:00)
--- NOTE | 2024-07-03 21:43 | HMCIMG ---
SHOULDER COMP 2+VWS RT CLINICAL HISTORY: Right shoulder pain COMPARISON: None TECHNIQUE: 2 images were obtained. FINDINGS: No obvious fracture or dislocation. No joint effusion. The soft tissues appear unremarkable. No radiopaque foreign bodies. There is mild osteoarthritic change of the acromioclavicular joint. IMPRESSION: No acute findings.
[2024-07-03] MEDS: LACTULOSE 20 GM/30 ML UDCUP PO SCH (21:52)
[2024-07-03 22:05] VITALS: BP 160/67; PULSE 69; RESP 17; TEMP 97.5
[2024-07-03 23:32] VITALS: PULSE 69; RESP 18
[2024-07-04] VITALS (11 sets, daily range): BP systolic 131–151; BP diastolic 53–66; PULSE 68–80; RESP 16–19; TEMP 97.8–98.8; O2SAT 98–99
[2024-07-04 05:50] LABS: EOSINOPHILS # (AUTO) 0.05 K/uL (0.00-0.70); EOSINOPHILS % (AUTO) 3.4 % (0.0-8.0); HEMATOCRIT 30.5 % (36-48); LYMPHOCYTES # (AUTO) 0.3 K/uL (1.0-4.8); LYMPHOCYTES % (AUTO) 22.8 % (21.0-51.0); MEAN CORPUSCULAR HEMOGLOBIN 28.7 pg (27.0-33.0); MEAN CORPUSCULAR HGB CONC 32.8 g/dL (32.0-36.0); MEAN CORPUSCULAR VOLUME 87.6 fL (79-99); MONOCYTES # (AUTO) 0.2 K/uL (0.1-1.0); MONOCYTES % (AUTO) 10.7 % (3.0-13.0); NEUTROPHILS # (AUTO) 0.9 K/uL (1.8-7.7); NEUTROPHILS % (AUTO) 63.1 % (40.0-77.0); PLATELET COUNT (AUTO) 35 K/uL (130-400); RED BLOOD CELL COUNT(AUTO) 3.48 MIL/uL (4.00-5.50); WHITE BLOOD COUNT (AUTO) 1.5 K/uL (4.8-10.8)
[2024-07-04 06:03] LABS: ALBUMIN 2.8 g/dL (3.5-5.0); BILIRUBIN,TOTAL 0.5 mg/dL (0.2-1.0); CREATININE 0.8 mg/dL (0.5-1.0); MAGNESIUM 1.7 mg/dL (1.80-2.40); POTASSIUM 3.9 mmol/L (3.5-5.1); TOTAL PROTEIN, SERUM 6.9 g/dL (6.0-8.3)
--- NOTE | 2024-07-04 07:46 | PN ---
[facility] PROGRESS NOTE Date of Service: Jul 04, 2024 Time of Service: 07:46 SUBJECTIVE: [69-year-old female admitted for shortness of breaths, fever and productive cough. Chest x-ray showed minimal pulmonary infiltrates, patient is currently on IV cefepime and doxycycline. Patient reported week and lethargic. Patient has history of liver cirrhosis, patient is per having persistent leukopenia, slowly downtrending. Patient has history of liver cirrhosis. At this point, hematology has been consulted. She will continue with current management. Still short of breath using accessory muscles. But currently on room air.] REVIEW OF SYSTEMS CONSTITUTIONAL: Denies fevers, chills, or night sweats. No unintentional weight loss reported. NEUROLOGICAL: Denies headache, amaurosis fugax, motor weakness, sensory deficit, vertigo/spinning sensation, gait abnormalities, or tremors. ENT: No hearing loss, otalgia, otorrhea, rhinitis, rhinorrhea, hoarseness, or sore throat. CARDIOVASCULAR: Denies any exertional angina, dyspnea on exertion, orthopnea, paroxysmal nocturnal dyspnea, palpitations, life-threatening arrhythmias, claudication. PULMONARY: Shortness of breath, productive cough with greenish sputum SLEEP: Denies morning headaches, daytime somnolence or napping. Denies difficulty falling asleep, staying asleep, waking from sleep. Denies knowledge of snoring. GASTROINTESTINAL: Reports having history of liver cirrhosis GENITOURINARY: Denies frequency, urgency, nocturia, hematuria or incontinence (Storage/Irritative symptoms.) Low urinary stream, straining to void, urinary intermittency or hesitancy, splitting of the voiding stream, terminal dribbling. ENDOCRINOLOGIC: Denies polyuria, polydipsia, polyphagia or heat/cold intolerances. HEMATOLOGIC: Denies thrombophilia/previous clots, or coagulopathy/bleeding disorders. ONCOLOGIC: Denies personal history of malignancy. DERMATOLOGIC: Denies rashes or pruritus. PSYCHIATRIC: Denies any suicidal or homicidal ideation. Denies hallucinations. PHYSICAL EXAM GENERAL APPEARANCE: The patient is awake, alert, and oriented, in no acute cardiopulmonary distress. NEUROLOGICAL: Cranial nerves II-XII grossly intact. Motor is 5/5 in bilateral upper and lower extremities proximal to distal. No sensory deficits. HEENT: Face is symmetric. Pupils are equal and reactive. Extraocular movements are intact. NECK: Supple. No JVD. No thyromegaly. No submental, submandibular, pre- /postauricular, occipital or supraclavicular lymphadenopathy. CHEST: Normal chest expansion. No Telemetry. LUNGS: Minimal crackles noted at bilateral lung bases with rhonchorous breath sounds CARDIOVASCULAR: Regular. S1 and S2 normal. No appreciable rubs, murmurs or gallops. ABDOMEN: Soft, nontender, and nondistended. There is no rebound, voluntary guarding, or rigidity. : Deferred. No Wagoner. EXTREMITIES: Non-edematous and not cyanotic. No clubbing. Good capillary refill. SKIN: No skin breakdown. Vital Signs (last 8hr) Date Time Temp Pulse Resp B/P (MAP) Pulse Ox O2 Delivery O2 Flow Rate FiO2 07/04/24 07:22 68 18 N/A Room Air 21 07/04/24 07:20 68 18 07/04/24 04:00 97.9 71 16 131/57 96 Room Air 21 LABS: Laboratory: Test 07/04/24 05:21 07/03/24 17:21 07/03/24 14:12 07/03/24 12:55 Range/Units White Blood Count 1.5 #L 4.8-10.8 K/uL Red Blood Count 3.48 L 4.00-5.50 MIL/uL Hemoglobin 10.0 L 12.0-16.0 g/dL Hematocrit 30.5 L 36-48 % Mean Corpuscular Volume 87.6 79-99 fL Mean Corpuscular Hemoglobin 28.7 27.0-33.0 pg Mean Corpuscular Hemoglobin Concent 32.8 32.0-36.0 g/dL Red Cell Distribution Width 14.0 11.0-15.5 % Platelet Count 35 L 130-400 K/uL Mean Platelet Volume 12.9 H 7.5-10.5 fL Immature Granulocyte % (Auto) 0.0 0-1 % Neutrophils (%) (Auto) 63.1 40.0-77.0 % Lymphocytes (%) (Auto) 22.8 21.0-51.0 % Monocytes (%) (Auto) 10.7 3.0-13.0 % Eosinophils (%) (Auto) 3.4 0.0-8.0 % Basophils (%) (Auto) 0.0 0.0-5.0 % Neutrophils # (Auto) 0.9 L 1.8-7.7 K/uL Lymphocytes # (Auto) 0.3 L 1.0-4.8 K/uL Monocytes # (Auto) 0.2 0.1-1.0 K/uL Eosinophils # (Auto) 0.05 0.00-0.70 K/uL Basophils # (Auto) 0.00 0.00-0.20 K/uL Absolute Immature Granulocyte (auto 0.00 0-1 K/uL Nucleated Red Blood Cells 0.0 0.0-0.19 % Sodium Level 140 136-145 mmol/L Potassium Level 3.9 3.5-5.1 mmol/L Chloride Level 108 101-111 mmol/L Carbon Dioxide Level 23 21-32 mmol/L Blood Urea Nitrogen 15 7-18 mg/dL Creatinine 0.8 0.5-1.0 mg/dL Glomerular Filtration Rate Calc 81 >90 mL/min Random Glucose 105 70-105 mg/dL Total Calcium 8.2 L 8.5-10.1 mg/dL Magnesium Level 1.70 L 1.80-2.40 mg/dL Total Bilirubin 0.5 # 0.2-1.0 mg/dL Aspartate Amino Transf (AST/SGOT) 51 H 10-37 U/L Alanine Aminotransferase (ALT/SGPT) 32 # 12-78 U/L Alkaline Phosphatase 113 50-136 U/L Total Protein 6.9 6.0-8.3 g/dL Albumin 2.8 L 3.5-5.0 g/dL Ammonia 59 H 11-32 umol/L Urine Color LIGHT-YELLOW YELLOW Urine Appearance CLEAR CLEAR Urine pH 6.5 5.0-8.0 Urine Specific [place] 1.008 1.001-1.031 Urine Protein NEGATIVE NEGATIVE mg/dL Urine Glucose (UA) NEGATIVE NEGATIVE mg/dL Urine Ketones NEGATIVE NEGATIVE mg/dL Urine Occult Blood NEGATIVE NEGATIVE Urine Nitrate NEGATIVE NEGATIVE Urine Bilirubin NEGATIVE NEGATIVE mg/dL Urine Urobilinogen 0.2 0.2-1.0 mg/dL Urine Leukocyte Esterase NEGATIVE NEGATIVE Kehinde/uL Urine RBC 0-1 0-1 /HPF Urine WBC 0-1 0-1 /HPF Urine Bacteria None None Seen /HPF Influenza Type A Antigen Negative For Type A NEGATIVE Influenza Type B Antigen Negative For Type B NEGATIVE SARS-CoV-2 Antigen (Rapid) PRESUMPTIVE NEGATIVE NEGATIVE Group A Streptococcus Rapid negative NEGATIVE Test 07/03/24 12:07 Range/Units Segmented Neutrophils % 61 40-70 % Band Neutrophils % 5 H 0-2 % Lymphocytes % (Manual) 20 L 22-44 % Monocytes % (Manual) 6 2-9 % Eosinophils % (Manual) 5 1-6 % Basophils % (Manual) 3 H 0-2 % Differential Comment MANUAL DIFFERENTIAL White Cell Morphology Comment CONSISTENT W/DIFF Platelet Morphology Comment MARKED DECREASE Red Blood Cell Morphology See comments Erythrocyte Sedimentation Rate 18 0-30 MM/HR Direct Bilirubin 0.2 0.0-0.3 mg/dL Lactate Dehydrogenase 155 81-234 U/L Troponin I High Sensitivity 6 4-50 ng/L C-Reactive Protein, Quantitative 1.40 0.5-3.0 mg/L Procalcitonin < 0.05 L 0.05-0.5 ng/mL Current Medications Medications (Trade) Dose Ordered Sig/Taylor Route PRN Reason Start Time Stop Time Status Last Admin Dose Admin Acetaminophen (TYLenol 325MG TAB) 650 mg Q6H PRN PO MILD PAIN (1-3) 07/03/24 16:00 08/02/24 15:59 Albuterol (DUOneb) 1 udvial [id number] IH 07/03/24 15:30 07/03/24 16:21 DC Albuterol (DUOneb) 1 udvial [id number] IH 07/03/24 18:00 08/02/24 17:59 07/04/24 07:20 1 UDVIAL Budesonide (Pulmicort 0.5 Mg/2ml) 0.5 mg BIDRESP IH 07/03/24 15:30 07/03/24 16:21 DC Budesonide (Pulmicort 0.5 Mg/2ml) 0.5 mg BIDRESP IH 07/03/24 18:00 08/02/24 17:59 07/04/24 07:19 0.5 MG Cefepime HCl (MAXipime 2 gm vial) 2 gm Q12H IVPB 07/03/24 18:00 07/13/24 17:59 07/04/24 05:35 2 GM Doxycycline Hyclate 250 ml @ 125 mls/hr Q12H IV 07/03/24 16:30 07/13/24 16:29 07/04/24 03:53 125 MLS/HR Guaifenesin/ Dextromethorphan (RobiTUSSin DM 200/20MG 10ML) 10 ml Q6H PRN PO COUGH 07/03/24 23:00 08/02/24 22:59 Lactated Ringer's 1,000 ml @ 75 mls/hr [id number] IV 07/03/24 16:00 08/02/24 15:59 07/03/24 16:48 75 MLS/HR Lactulose (Constulose 20gm/ 30ml Udcup) 30 gm BID PO 07/03/24 21:00 07/03/24 19:11 DC Lactulose (Constulose 20gm/ 30ml Udcup) 30 gm TID PO 07/03/24 21:00 08/02/24 20:59 07/03/24 21:52 30 GM Magnesium Sulfate 50 ml @ 0 mls/hr PROTOCOL IV 07/03/24 20:30 08/02/24 20:29 Multivitamins Therapeutic (Multivitamin Tablet) 1 tab DAILY PO 07/04/24 09:00 08/03/24 08:59 Ondansetron HCl (zoFRAN 4MG INJ) 4 mg Q6H PRN IVP NAUSEA/VOMITING 07/03/24 16:00 08/02/24 15:59 Pantoprazole Sodium (PROTonix 40MG INJ) 40 mg Q24H IVP 07/03/24 16:00 08/02/24 15:59 07/03/24 16:48 40 MG Potassium Chloride 100 ml @ 100 mls/hr AD PRN IV POTASSIUM PROTOCOL 07/03/24 20:30 08/02/24 20:29 Potassium Chloride (K-Dur/Klor-Con 20meq) 20 meq AD PRN PO POTASSIUM PROTOCOL 07/03/24 20:30 08/02/24 20:29 Potassium Chloride (KCl 10% Elixir 20meq/15ml) 20 meq AD PRN PO POTASSIUM PROTOCOL 07/03/24 20:30 08/02/24 20:29 Thiamine HCl (Vitamin B-1) 100 mg Q24H IVP 07/03/24 16:00 08/02/24 15:59 07/03/24 16:48 100 MG DIAGNOSTICS / RADIOLOGY: [ ] ASSESSMENT: Developing community-acquired pneumonia, POA Leukopenia, POA Right upper extremity numbness x3 days, POA Underlying history of cirrhosis of the liver, POA Moderate thrombocytopenia secondary to underlying cirrhosis w/portal HTN, POA Obesity, POA Hypertension, POA Debility, POA PLAN: Patient will be admitted to medical-surgical floor under telemetry monitoring Continue with current IV antibiotics with cefepime/doxycycline, patient reports having productive cough in the setting of leukopenia and underlying cirrhosis, chest x-ray showed concerns for bilateral infiltrates CT chest without contrast reviewed We follow up the respiratory culture,, mycoplasma serologies, urine Legionella and streptococcal antigen testing Patient has mild wheezing on examination, we will start patient on scheduled nebulizers and albuterol Appreciate recommendations from program facilitator Patient is not showing signs of overt hepatic encephalopathy, we will start patient on lactulose 30 mL t.i.d., we will titrate so patient has at least three bowel movements daily, we will monitor mental status closely With regards to numbness involving the right upper extremity, we will follow up CT head without contrast, we will request associated tele neurology evaluation, we will see if Neurology requests MRI this admission for further workup this admission, pt also complaint of fhaving right shoulder pain, will f/u on X rays We will keep patient on IV lactated Ringer's 75 mL/hour times 24 hours Home medications will be reconciled and updated once available All labs will be repeated in the morning Patient was seen and examined with Dr. Arteaga, above plan was formulated ATTESTATION BY PHYSICIAN I have seen and examined the patient. I reviewed the documentation, medical decision making, and treatment plan as noted by the mid-level provider above. I agree with the findings and plan of care. Li Arteaga MD, [facility] Jul 04, 2024 07:46
[2024-07-04] MEDS: MULTIVITAMIN TABLET PO SCH (09:51)
[2024-07-04] MEDS: MAGNESIUM 2GM PREMIX 50ML 50 ML IV SCH (09:54)
--- NOTE | 2024-07-04 12:05 | CONS ---
PEGGY LUBIN MD 07/04/24 1205: HISTORY HPI: A 69-year-old obese female with a past medical history of liver cirrhosis (likely secondary to VIDES), hypertension, and no significant alcohol use, presented to the emergency department on July 03, 2024, with progressive shortness of breath, pleuritic chest pain, and productive cough with green sputum for the past 3 days. She also reports low-grade fevers at home, worsening dyspnea with ambulation, and right upper extremity numbness without associated weakness. No prior history of stroke, seizures, or TIA. She denies melena, hematemesis, or hematochezia. She has a known diagnosis of cirrhosis but is unsure of the etiology. She follows outpatient GI and takes lactulose as maintenance. On arrival, she was afebrile and hemodynamically stable. Laboratory evaluation revealed pancytopenia with WBC 1.5, Hb 10.0, Plt 35K, ANC 0.9. Imaging revealed bilateral pulmonary infiltrates concerning for atypical pneumonia. Respiratory panel was positive for Mycoplasma pneumoniae IgM. She was admitted to the medical floor under telemetry monitoring for further evaluation and management of atypical community-acquired pneumonia in the setting of chronic liver disease and pancytopenia. PMH: Hypertension, liver cirrhosis, chronic thrombocytopenia Reports previous history of colonoscopy PAST SOCIAL HISTORY: Patient denies active smoking or alcohol consumption. Denies any secondhand exposure to smoking. Denies any prior alcohol intake. Denies any illicit drug use. Independent with ADLs and IADLs FAMILY HISTORY: Denies pertinent family history PSH: Reports previous history of colonoscopy SH: Patient denies active smoking or alcohol consumption. Denies any secondhand exposure to smoking. Denies any prior alcohol intake. Denies any illicit drug use. Independent with ADLs and IADLs FH: Denies pertinent family history ALLERGIES: Coded Allergies: No Known Drug Allergies (Unverified Allergy, Unknown, 03/14/22) CURRENT MEDS: Current Medications Medications (Trade) Dose Ordered Sig/Taylor Route PRN Reason Start Time Stop Time Status Last Admin Cefepime HCl (MAXipime 2 gm vial) 2 gm Q12H IVPB 07/03/24 18:00 07/13/24 17:59 07/04/24 05:35 Pantoprazole Sodium (PROTonix 40MG INJ) 40 mg Q24H IVP 07/03/24 16:00 08/02/24 15:59 07/03/24 16:48 Acetaminophen (TYLenol 325MG TAB) 650 mg Q6H PRN PO MILD PAIN (1-3) 07/03/24 16:00 08/02/24 15:59 Ondansetron HCl (zoFRAN 4MG INJ) 4 mg Q6H PRN IVP NAUSEA/VOMITING 07/03/24 16:00 08/02/24 15:59 Lactated Ringer's 1,000 ml @ 75 mls/hr [id number] IV 07/03/24 16:00 08/02/24 15:59 07/03/24 16:48 Thiamine HCl (Vitamin B-1) 100 mg Q24H IVP 07/03/24 16:00 08/02/24 15:59 07/03/24 16:48 Multivitamins Therapeutic (Multivitamin Tablet) 1 tab DAILY PO 07/04/24 09:00 08/03/24 08:59 07/04/24 09:51 Budesonide (Pulmicort 0.5 Mg/2ml) 0.5 mg BIDRESP IH 07/03/24 18:00 08/02/24 17:59 07/04/24 07:19 Albuterol (DUOneb) 1 udvial [id number] IH 07/03/24 18:00 08/02/24 17:59 07/04/24 11:25 Doxycycline Hyclate 250 ml @ 125 mls/hr Q12H IV 07/03/24 16:30 07/13/24 16:29 07/04/24 03:53 Lactulose (Constulose 20gm/ 30ml Udcup) 30 gm TID PO 07/03/24 21:00 08/02/24 20:59 07/04/24 09:52 Potassium Chloride 100 ml @ 100 mls/hr AD PRN IV POTASSIUM PROTOCOL 07/03/24 20:30 08/02/24 20:29 Potassium Chloride (KCl 10% Elixir 20meq/15ml) 20 meq AD PRN PO POTASSIUM PROTOCOL 07/03/24 20:30 08/02/24 20:29 Potassium Chloride (K-Dur/Klor-Con 20meq) 20 meq AD PRN PO POTASSIUM PROTOCOL 07/03/24 20:30 08/02/24 20:29 Magnesium Sulfate 50 ml @ 0 mls/hr PROTOCOL IV 07/03/24 20:30 08/02/24 20:29 07/04/24 09:54 Guaifenesin/ Dextromethorphan (RobiTUSSin DM 200/20MG 10ML) 10 ml Q6H PRN PO COUGH 07/03/24 23:00 08/02/24 22:59 REVIEW OF SYSTEMS CONSTITUTIONAL: No FEVER, No SWEATS, No CHILLS, No WEIGHT LOSS HEENT: No JAUNDICE, No SORE THROAT, No SINUS PRESSURE, No VISION CHANGES RESPIRATORY: COUGH; No CHEST PAIN; SHORTNESS OF BREATH (Shortness of breath, productive cough with greenish sputum); No HEMOPTYSIS CARDIOVASCULAR: No PALPATIONS, No DYSPNEA ON EXERTION, No SYNCOPE GASTROINTESTINAL: No NAUSEA, No VOMITING (Reports having history of liver cirrhosis), No DIARRHEA, No DYSPHAGIA, No CONSTIPATION, No ABDOMINAL PAIN, No HEMATEMESIS, No HEMATOCHEZIA, No MELENA GENITOURINARY: No DYSURIA, No HEMATURIA HEMATOLOGIC/LYMPHATIC: No EASY BRUISING, No CERVICAL ADENOPATHY, No AXILLARY ADENOPATHY, No INGUINAL ADENOPATHY MUSCULOSKELETAL: No BONE PAIN, No MASS; NORMAL RANGE OF MOTION SKIN/BREASTS: No BREAST MASS, No NIPPLE INVERSION, No RASH NEUROLOGICAL: No WEAKNESS-EXTREMETIES, No DIPLOPIA, No NUMBNESS, No TINGLING PSYCHOLOGICAL: No SUICIDAL IDEATION PHYSICAL EXAM VITALS: Vital Signs Date Time Temp Pulse Resp B/P (MAP) Pulse Ox O2 Delivery O2 Flow Rate FiO2 07/04/24 11:26 74 18 07/04/24 09:05 98 Room Air* 0 21 07/04/24 08:00 97.9 141/63 GENERAL: ALERT, ORIENTED, APPEARS-NO ACUTE DISTRESS EYES: SCLERAE ANICTERIC, PUPILS EQUAL/REACTIVE, EXTRAOCULAR MUSCLES INTCT ENT/NECK: ORAL MUCOSA W/O LESIONS, OROPHARYNX IS CLEAR, NECK SUPPLE W/O MASSES RESPIRATORY: No LUNGS CLEAR-AUSC/PERCUS ( Minimal crackles noted at bilateral lung bases with rhonchorous breath sounds) CARDIOVASCULAR: REGULAR RATE, REGULAR RHYTHM GASTROINTESTINAL: No ABDOMEN IS SOFT, No TENDER, No DISTENDED; HEPATOSPLENOMEGALY; No BOWEL SOUNDS PRESENT, No PALPABLE MASSES HEMATOLOGY/LYMPHATIC: No CERVICAL ADENOPATHY, No SUPRACLAVICULR ADENOPATHY, No AXILLARY ADENOPATHY, No INGUINAL ADENOPATHY MUSCULOSKELETAL: No CYANOSIS-EXTREMETIES, No CLUBBING, No EDEMA SKIN/BREASTS: No MASSES, No RASH, No HIVES NEUROLOGICAL: GROSSLY INTACT PSYCHOLOGICAL: MINI MENTAL ASSMT INTACT DIAGNOSTIC STUDIES Vital Signs Date Time Temp Pulse Resp B/P (MAP) Pulse Ox O2 Delivery O2 Flow Rate FiO2 07/04/24 12:00 98.8 76 17 144/53 99 Room Air 07/04/24 09:05 0 21 Laboratory Tests Test 07/03/24 14:12 07/03/24 17:21 07/04/24 05:21 Urine Color LIGHT-YELLOW (YELLOW) Urine Appearance CLEAR (CLEAR) Urine pH 6.5 (5.0-8.0) Urine Specific [place] 1.008 (1.001-1.031) Urine Protein NEGATIVE mg/dL (NEGATIVE) Urine Glucose (UA) NEGATIVE mg/dL (NEGATIVE) Urine Ketones NEGATIVE mg/dL (NEGATIVE) Urine Occult Blood NEGATIVE (NEGATIVE) Urine Nitrate NEGATIVE (NEGATIVE) Urine Bilirubin NEGATIVE mg/dL (NEGATIVE) Urine Urobilinogen 0.2 mg/dL (0.2-1.0) Urine Leukocyte Esterase NEGATIVE Kehinde/uL Urine RBC 0-1 /HPF (0-1) Urine WBC 0-1 /HPF (0-1) Urine Bacteria None /HPF (None Seen) Ammonia 59 umol/L (11-32) H White Blood Count 1.5 K/uL (4.8-10.8) #L Red Blood Count 3.48 MIL/uL (4.00-5.50) L Hemoglobin 10.0 g/dL (12.0-16.0) L Hematocrit 30.5 % (36-48) L Mean Corpuscular Volume 87.6 fL (79-99) Mean Corpuscular Hemoglobin 28.7 pg (27.0-33.0) Mean Corpuscular Hemoglobin Concent 32.8 g/dL (32.0-36.0) Red Cell Distribution Width 14.0 % (11.0-15.5) Platelet Count 35 K/uL (130-400) L Mean Platelet Volume 12.9 fL (7.5-10.5) H Immature Granulocyte % (Auto) 0.0 % (0-1) Neutrophils (%) (Auto) 63.1 % (40.0-77.0) Lymphocytes (%) (Auto) 22.8 % (21.0-51.0) Monocytes (%) (Auto) 10.7 % (3.0-13.0) Eosinophils (%) (Auto) 3.4 % (0.0-8.0) Basophils (%) (Auto) 0.0 % (0.0-5.0) Neutrophils # (Auto) 0.9 K/uL (1.8-7.7) L Lymphocytes # (Auto) 0.3 K/uL (1.0-4.8) L Monocytes # (Auto) 0.2 K/uL (0.1-1.0) Eosinophils # (Auto) 0.05 K/uL (0.00-0.70) Basophils # (Auto) 0.00 K/uL (0.00-0.20) Absolute Immature Granulocyte (auto 0.00 K/uL (0-1) Nucleated Red Blood Cells 0.0 % (0.0-0.19) Sodium Level 140 mmol/L (136-145) Potassium Level 3.9 mmol/L (3.5-5.1) Chloride Level 108 mmol/L (101-111) Carbon Dioxide Level 23 mmol/L (21-32) Blood Urea Nitrogen 15 mg/dL (7-18) Creatinine 0.8 mg/dL (0.5-1.0) Glomerular Filtration Rate Calc 81 mL/min (>90) Random Glucose 105 mg/dL (70-105) Total Calcium 8.2 mg/dL (8.5-10.1) L Magnesium Level 1.70 mg/dL (1.80-2.40) L Total Bilirubin 0.5 mg/dL (0.2-1.0) # Aspartate Amino Transf (AST/SGOT) 51 U/L (10-37) H Alanine Aminotransferase (ALT/SGPT) 32 U/L (12-78) # Alkaline Phosphatase 113 U/L (50-136) Total Protein 6.9 g/dL (6.0-8.3) Albumin 2.8 g/dL (3.5-5.0) L Mycoplasma pneumoniae IgM Antibody POSITIVE (NEGATIVE) H Current Medications Medications (Trade) Dose Ordered Sig/Taylor Route Start Time Stop Time Status Last Admin Dose Admin Albuterol (DUOneb) 1 udvial [id number] 07/03/24 15:30 07/03/24 16:21 DC Albuterol (DUOneb) 1 udvial [id number] IH 07/03/24 18:00 08/02/24 17:59 07/04/24 11:25 1 UDVIAL Budesonide (Pulmicort 0.5 Mg/2ml) 0.5 mg BIDRESP IH 07/03/24 15:30 07/03/24 16:21 DC Budesonide (Pulmicort 0.5 Mg/2ml) 0.5 mg BIDRESP IH 07/03/24 18:00 08/02/24 17:59 07/04/24 07:19 0.5 MG Cefepime HCl (MAXipime 2 gm vial) 2 gm Q12H IVPB 07/03/24 18:00 07/13/24 17:59 07/04/24 05:35 2 GM Doxycycline Hyclate 250 ml @ 125 mls/hr Q12H IV 07/03/24 16:30 07/13/24 16:29 07/04/24 03:53 125 MLS/HR Lactated Ringer's 1,000 ml @ 75 mls/hr [id number] IV 07/03/24 16:00 08/02/24 15:59 07/03/24 16:48 75 MLS/HR Lactulose (Constulose 20gm/ 30ml Udcup) 30 gm BID PO 07/03/24 21:00 07/03/24 19:11 DC Lactulose (Constulose 20gm/ 30ml Udcup) 30 gm TID PO 07/03/24 21:00 08/02/24 20:59 07/04/24 09:52 30 GM Magnesium Sulfate 50 ml @ 0 mls/hr PROTOCOL IV 07/03/24 20:30 08/02/24 20:29 07/04/24 09:54 25 MLS/HR Multivitamins Therapeutic (Multivitamin Tablet) 1 tab DAILY PO 07/04/24 09:00 08/03/24 08:59 07/04/24 09:51 1 TAB Pantoprazole Sodium (PROTonix 40MG INJ) 40 mg Q24H IVP 07/03/24 16:00 08/02/24 15:59 07/03/24 16:48 40 MG Thiamine HCl (Vitamin B-1) 100 mg Q24H IVP 07/03/24 16:00 08/02/24 15:59 07/03/24 16:48 100 MG IMPRESSION * Atypical community-acquired pneumonia due to Mycoplasma pneumoniae * Pancytopenia: Normocytic normochromic anemia with large platelets and rouleaux formation on smear * Moderate thrombocytopenia 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 * Right upper extremity numbness, non-acute CT head, tele-neuro consulted * Liver cirrhosis with portal hypertension * Obesity, Hypertension, Debility PLAN Hematology/Oncology: * Peripheral blood smear: Normocytic normochromic anemia, large platelets, rouleaux formation * Likely multifactorial etiology: hypersplenism, marrow suppression, nutritional deficiency, or plasma cell dyscrasia * Ordered: * Alpha-fetoprotein (AFP) * Start folic acid and B12 supplementation empirically * Serum protein electrophoresis (SPEP) * Urine protein electrophoresis (UPEP) * Serum free light chains * Bone marrow biopsy if worsening counts or no recovery * Continue CBC monitoring daily * Monitor for bleeding (platelets <50K with procedures or <10K without bleeding = transfuse) JOHNNA TEIXEIRA MD 07/04/24 2239: PLAN I attest that I was physically present to evaluate the patient and I reviewed and discussed the case with the Resident and agree with the Resident's findings and plans of care as documented above with modifications. Case discussed with resident on the date stated at the beginning of note. Patient was first seen and evaluated by me during this hospitalization. PEGGY LUBIN MD Jul 04, 2024 12:05 JOHNNA TEIXEIRA MD Jul 04, 2024 22:39
[2024-07-04] MEDS ORDERED: OMEP40CA21 PO (13:16)
[2024-07-04] MEDS ORDERED: LACT10SO75 PO (13:16)
[2024-07-04] MEDS ORDERED: ALEN70TA80 PO (13:16)
[2024-07-04] MEDS ORDERED: DICY20TA2 PO (13:16)
[2024-07-04] MEDS ORDERED: ERGO500093 PO (13:16)
[2024-07-04] MEDS ORDERED: FLUT16H EN (13:16)
[2024-07-04] MEDS ORDERED: NEO/3.5O OU (13:16)
[2024-07-04] MEDS ORDERED: POLY510P31 PO (13:16)
--- NOTE | 2024-07-04 13:49 | CONS ---
[facility] CONSULTATION NOTE Date Patient Seen: Jul 04, 2024 Time of Visit: 13:49 Supervising Physician: [Dr. Wynne] Reason for Consultation: [Pneumonia] Primary Care Physician: [[facility]] Outpatient Specialists: [ ] Inpatient Consults: [[facility]] PROBLEM LIST: Atypical community-acquired pneumonia due to Mycoplasma pneumoniae Pancytopenia, in setting of pneumonia and liver cirrhosis Right upper extremity numbness, non-acute CT head Liver cirrhosis with portal hypertension Obesity Hypertension Debility Plan: Continue cefepime and doxycycline for now Follow sputum culture results Continue lactulose per primary Monitor response to treatment Further management per hospital course All other problems per primary HPI: This is a 69-year-old female with a history of hypertension, liver cirrhosis who presented to the ED for evaluation of shortness of breaths associated with productive cough and chest congestion. She was found with pancytopenia with WBC of 2, hemoglobin 9 and platelets of 45. Her ammonia level was mildly elevated at 59, procalcitonin negative. Her CXR shows bilateral pulmonary infiltrates. CT chest revealed mild pulmonary fibrosis. Patient was complaining of right upper extremity numbness. Right shoulder x-ray was unremarkable. CT of the head negative for ICH. Abdominal ultrasound WNL. Patient is positive for mycoplasma pneumoniae, continues on cefepime and doxy for the same, pending sputum culture. Oncology has been consulted for evaluation of pancytopenia. [facility] is consulted for pneumoniae. Patient admits cough but stasis unproductive. Her lungs are clear to auscultation bilaterally, she is saturating well on room air. She has been initiated on lactulose t.i.d. for elevated ammonia. PAST MEDICAL HX: see above PAST SURGICAL HX: noncontributory SOCIAL HISTORY: No tobacco, ETOH, or illicit drug use Coded Allergies: No Known Drug Allergies (Unverified Allergy, Unknown, 03/14/22) REVIEW OF SYSTEMS: 12 point ROS reviewed with patient. Pertinent positives mentioned above. Otherwise negative. PHYSICAL EXAM: GENERAL: alert, weak, awake oriented x 3 HEENT: EOMI, Sclera non icteric, moist mucosa NECK: Supple, no JVD, trachea midline LUNGS: Clear breath sounds bilaterally. No wheezes HEART: Regular rate and rhythm. Normal S1 and S2, without murmurs ABD: Abdomen soft, nontender. Bowel sounds present EXT: No clubbing cyanosis or edema NEURO: Alert and oriented to person, follows commands Vital Signs (last 8hr) Date Time Temp Pulse Resp B/P (MAP) Pulse Ox O2 Delivery O2 Flow Rate FiO2 07/04/24 12:00 98.8 76 17 144/53 99 Room Air 07/04/24 11:26 74 18 07/04/24 09:05 98 Room Air* 0 21 07/04/24 08:00 97.9 68 17 141/63 98 Room Air 07/04/24 07:22 68 18 N/A Room Air 07/04/24 07:20 68 18 LABS: Hematology Labs: Test 07/04/24 05:21 07/03/24 12:07 Range/Units White Blood Count 1.5 #L 4.8-10.8 K/uL Red Blood Count 3.48 L 4.00-5.50 MIL/uL Hemoglobin 10.0 L 12.0-16.0 g/dL Hematocrit 30.5 L 36-48 % Mean Corpuscular Volume 87.6 79-99 fL Mean Corpuscular Hemoglobin 28.7 27.0-33.0 pg Mean Corpuscular Hemoglobin Concent 32.8 32.0-36.0 g/dL Red Cell Distribution Width 14.0 11.0-15.5 % Platelet Count 35 L 130-400 K/uL Mean Platelet Volume 12.9 H 7.5-10.5 fL Immature Granulocyte % (Auto) 0.0 0-1 % Neutrophils (%) (Auto) 63.1 40.0-77.0 % Lymphocytes (%) (Auto) 22.8 21.0-51.0 % Monocytes (%) (Auto) 10.7 3.0-13.0 % Eosinophils (%) (Auto) 3.4 0.0-8.0 % Basophils (%) (Auto) 0.0 0.0-5.0 % Neutrophils # (Auto) 0.9 L 1.8-7.7 K/uL Lymphocytes # (Auto) 0.3 L 1.0-4.8 K/uL Monocytes # (Auto) 0.2 0.1-1.0 K/uL Eosinophils # (Auto) 0.05 0.00-0.70 K/uL Basophils # (Auto) 0.00 0.00-0.20 K/uL Absolute Immature Granulocyte (auto 0.00 0-1 K/uL Nucleated Red Blood Cells 0.0 0.0-0.19 % Segmented Neutrophils % 61 40-70 % Band Neutrophils % 5 H 0-2 % Lymphocytes % (Manual) 20 L 22-44 % Monocytes % (Manual) 6 2-9 % Eosinophils % (Manual) 5 1-6 % Basophils % (Manual) 3 H 0-2 % Differential Comment MANUAL DIFFERENTIAL White Cell Morphology Comment CONSISTENT W/DIFF Platelet Morphology Comment MARKED DECREASE Red Blood Cell Morphology See comments Erythrocyte Sedimentation Rate 18 0-30 MM/HR Chemistry Labs: Test 07/04/24 05:21 07/03/24 17:21 07/03/24 12:07 Range/Units Sodium Level 140 136-145 mmol/L Potassium Level 3.9 3.5-5.1 mmol/L Chloride Level 108 101-111 mmol/L Carbon Dioxide Level 23 21-32 mmol/L Blood Urea Nitrogen 15 7-18 mg/dL Creatinine 0.8 0.5-1.0 mg/dL Glomerular Filtration Rate Calc 81 >90 mL/min Random Glucose 105 70-105 mg/dL Total Calcium 8.2 L 8.5-10.1 mg/dL Magnesium Level 1.70 L 1.80-2.40 mg/dL Total Bilirubin 0.5 # 0.2-1.0 mg/dL Aspartate Amino Transf (AST/SGOT) 51 H 10-37 U/L Alanine Aminotransferase (ALT/SGPT) 32 # 12-78 U/L Alkaline Phosphatase 113 50-136 U/L Total Protein 6.9 6.0-8.3 g/dL Albumin 2.8 L 3.5-5.0 g/dL Ammonia 59 H 11-32 umol/L Direct Bilirubin 0.2 0.0-0.3 mg/dL Lactate Dehydrogenase 155 81-234 U/L Troponin I High Sensitivity 6 4-50 ng/L C-Reactive Protein, Quantitative 1.40 0.5-3.0 mg/L Procalcitonin < 0.05 L 0.05-0.5 ng/mL DIAGNOSTICS / RADIOLOGY RESULTS: [Reviewed] PLAN NEURO: Minimize central acting medications as possible. Maintain fall precautions, adequate lighting during the day PULMONARY: Supplemental 02 as needed. Maintain aspiration precautions at all times CARDIOVASCULAR: Follow hemodynamics. Vital signs per facility protocol GI & NUTRITION: Continue with nutritional support. Continue stool softeners and laxatives as needed. KIDNEYS & ELECTROLYTES: Strict monitoring of intake, output and overall fluid balance. Avoid nephrotoxic medications to the extent possible. Medications to be dosed according to renal function. Monitor electrolytes and replace as needed ENDOCRINE: Maintain blood glucose between 100-180 at all times. Hypoglycemia protocol in place INFECTIOUS DISEASE: Trend temperature, WBC and procalcitonin level Follow cultures, deescalate antibiotics as soon as possible. Panculture if new onset fever ONCOLOGY/HEMATOLOGY/COAGULATION: Monitor for s/s of bleeding Monitor hemoglobin, coagulation studies as needed SKIN: Pressure ulcer prevention per facility protocol Specialty mattress ORTHO/REHAB: Continue PT/OT Prophylaxis: Continue GI and DVT prophylaxis Code Status: Full Resuscitation Disposition: TBD Other: Total patient care time exceeds 35 minutes excluding all procedures. NEGRA AGUSTIN Jul 04, 2024 13:49
--- NOTE | 2024-07-04 14:23 | NUR ---
Discharge Planning: Patient states she lives alone. Contact number is for her son Amilcar Wilburn at . PCP Dilan VALIENTE, and preferred pharmacy is [facility] in [place]. Pt. states she has no home health but has provider services 3 hours daily. States she needs assistance with ADL's. Has a walker she uses prn. Pt. states he son assists with transportation, and also uses transportation provided by [employer] of [place]. No HD, patient is on room air. DCP is for home depending on patient's progress. Addendum: 07/04/24 at 1429 by ASHLEIGH SHAH RN Amended: Links added.
[2024-07-04] MEDS: CYANOCOBALAMIN (VITAMIN B-12) 1000 MCG/ML 1ML VIAL IM SCH (17:51)
[2024-07-04] MEDS: FOLic ACID 1 MG TABLET PO SCH (17:52)
[2024-07-04] MEDS: ondanSETRON 4MG INJ IVP PRN (19:46)
[2024-07-05] VITALS (12 sets, daily range): BP systolic 136–159; BP diastolic 50–71; PULSE 71–77; RESP 16–20; TEMP 97.9–98.8; O2SAT 95–99
[2024-07-05 05:51] LABS: HEMATOCRIT 32.3 % (36-48); MEAN CORPUSCULAR HEMOGLOBIN 28.9 pg (27.0-33.0); MEAN CORPUSCULAR HGB CONC 32.5 g/dL (32.0-36.0); RED BLOOD CELL COUNT(AUTO) 3.63 MIL/uL (4.00-5.50); RED CELL DISTRIBUTION WIDTH 14.2 % (11.0-15.5); WHITE BLOOD COUNT (AUTO) 1.8 K/uL (4.8-10.8)
[2024-07-05 06:03] LABS: CREATININE 0.8 mg/dL (0.5-1.0)
--- NOTE | 2024-07-05 07:10 | NUR ---
[facility] SYSTEM DOWN
[2024-07-05] MEDS: guaiFENesin-DM 200/20MG 10ML PO PRN (09:45)
--- NOTE | 2024-07-05 10:37 | PN ---
[facility] PROGRESS NOTE Date Patient Seen: July 05, 2024 Time of Visit: 10:34 Supervising Physician: [Dr. Izaguirre] Primary Care Physician: [[facility]] Outpatient Specialists: [ ] Inpatient Consults: [[facility]] PROBLEM LIST: Atypical community-acquired pneumonia due to Mycoplasma pneumoniae Pancytopenia, in setting of pneumonia and liver cirrhosis Right upper extremity numbness, non-acute CT head Liver cirrhosis with portal hypertension Obesity Hypertension Debility Plan: Continue cefepime and doxycycline for now Cough medication prn Follow sputum culture results Decrease lactulose to 20mg daily Monitor response to treatment Follow oncology recommendation Further management per hospital course All other problems per primary INTERVAL HISTORY: [Patient is evaluated at bedside. States she continues with cough, denies phlegm but states is thick mucus secretion. Her lungs are clear to auscultation without wheezing, rhonchi or congestion. Her sputum culture shows gm positive cocci, pending final. States she had about six episodes of loose bowel movements last night, she attributed to her lactulose which she states takes daily at home. Has been receiving it scheduled here at 3 times daily. She continues saturating well on room air, no acute respiratory distress. She is pe nding labs to evaluate for bone marrow suppression with Oncology.] REVIEW OF SYSTEMS: 12 point ROS reviewed with patient. Pertinent positives mentioned above. Otherwise negative. PHYSICAL EXAM: GENERAL: alert, weak, awake oriented x 3 HEENT: EOMI, Sclera non icteric, moist mucosa NECK: Supple, no JVD, trachea midline LUNGS: Clear breath sounds bilaterally. No wheezes HEART: Regular rate and rhythm. Normal S1 and S2, without murmurs ABD: Abdomen soft, nontender. Bowel sounds present EXT: No clubbing cyanosis or edema NEURO: Alert and oriented to person, follows commands Vital Signs (last 8hr) Date Time Temp Pulse Resp B/P (MAP) Pulse Ox O2 Delivery O2 Flow Rate FiO2 07/05/24 08:00 97.9 75 18 136/63 96 Room Air 07/05/24 06:20 73 18 07/05/24 06:20 73 18 N/A Room Air 21 LABS: Hematology Labs: Test 07/05/24 05:44 07/04/24 05:21 07/03/24 12:07 Range/Units White Blood Count 1.8 L 4.8-10.8 K/uL Red Blood Count 3.63 L 4.00-5.50 MIL/uL Hemoglobin 10.5 L 12.0-16.0 g/dL Hematocrit 32.3 L 36-48 % Mean Corpuscular Volume 89.0 79-99 fL Mean Corpuscular Hemoglobin 28.9 27.0-33.0 pg Mean Corpuscular Hemoglobin Concent 32.5 32.0-36.0 g/dL Red Cell Distribution Width 14.2 11.0-15.5 % Platelet Count 39 L 130-400 K/uL Mean Platelet Volume 13.0 H 7.5-10.5 fL Nucleated Red Blood Cells 0.0 0.0-0.19 % Immature Granulocyte % (Auto) 0.0 0-1 % Neutrophils (%) (Auto) 63.1 40.0-77.0 % Lymphocytes (%) (Auto) 22.8 21.0-51.0 % Monocytes (%) (Auto) 10.7 3.0-13.0 % Eosinophils (%) (Auto) 3.4 0.0-8.0 % Basophils (%) (Auto) 0.0 0.0-5.0 % Neutrophils # (Auto) 0.9 L 1.8-7.7 K/uL Lymphocytes # (Auto) 0.3 L 1.0-4.8 K/uL Monocytes # (Auto) 0.2 0.1-1.0 K/uL Eosinophils # (Auto) 0.05 0.00-0.70 K/uL Basophils # (Auto) 0.00 0.00-0.20 K/uL Absolute Immature Granulocyte (auto 0.00 0-1 K/uL Segmented Neutrophils % 61 40-70 % Band Neutrophils % 5 H 0-2 % Lymphocytes % (Manual) 20 L 22-44 % Monocytes % (Manual) 6 2-9 % Eosinophils % (Manual) 5 1-6 % Basophils % (Manual) 3 H 0-2 % Differential Comment MANUAL DIFFERENTIAL White Cell Morphology Comment CONSISTENT W/DIFF Platelet Morphology Comment MARKED DECREASE Red Blood Cell Morphology See comments Erythrocyte Sedimentation Rate 18 0-30 MM/HR Chemistry Labs: Test 07/05/24 05:44 07/04/24 05:21 07/03/24 17:21 07/03/24 12:07 Range/Units Sodium Level 142 136-145 mmol/L Potassium Level 4.0 3.5-5.1 mmol/L Chloride Level 110 101-111 mmol/L Carbon Dioxide Level 26 21-32 mmol/L Blood Urea Nitrogen 12 7-18 mg/dL Creatinine 0.8 0.5-1.0 mg/dL Glomerular Filtration Rate Calc 81 >90 mL/min Random Glucose 102 70-105 mg/dL Total Calcium 8.3 L 8.5-10.1 mg/dL Magnesium Level 2.00 1.80-2.40 mg/dL Total Bilirubin 0.5 # 0.2-1.0 mg/dL Aspartate Amino Transf (AST/SGOT) 51 H 10-37 U/L Alanine Aminotransferase (ALT/SGPT) 32 # 12-78 U/L Alkaline Phosphatase 113 50-136 U/L Total Protein 6.9 6.0-8.3 g/dL Albumin 2.8 L 3.5-5.0 g/dL Ammonia 59 H 11-32 umol/L Direct Bilirubin 0.2 0.0-0.3 mg/dL Lactate Dehydrogenase 155 81-234 U/L Troponin I High Sensitivity 6 4-50 ng/L C-Reactive Protein, Quantitative 1.40 0.5-3.0 mg/L Procalcitonin < 0.05 L 0.05-0.5 ng/mL DIAGNOSTICS / RADIOLOGY RESULTS: [ ] PLAN NEURO: Minimize central acting medications as possible. Maintain fall precautions, adequate lighting during the day PULMONARY: Supplemental 02 as needed. Maintain aspiration precautions at all times CARDIOVASCULAR: Follow hemodynamics. Vital signs per facility protocol GI & NUTRITION: Continue with nutritional support. Continue stool softeners and laxatives as needed. KIDNEYS & ELECTROLYTES: Strict monitoring of intake, output and overall fluid balance. Avoid nephrotoxic medications to the extent possible. Medications to be dosed according to renal function. Monitor electrolytes and replace as needed ENDOCRINE: Maintain blood glucose between 100-180 at all times. Hypoglycemia protocol in place INFECTIOUS DISEASE: Trend temperature, WBC and procalcitonin level Follow cultures, deescalate antibiotics as soon as possible. Panculture if new onset fever ONCOLOGY/HEMATOLOGY/COAGULATION: Monitor for s/s of bleeding Monitor hemoglobin, coagulation studies as needed SKIN: Pressure ulcer prevention per facility protocol Specialty mattress ORTHO/REHAB: Continue PT/OT Prophylaxis: Continue GI and DVT prophylaxis Code Status: Full Resuscitation Disposition: TBD Other: Total patient care time exceeds 35 minutes excluding all procedures. NEGRA AGUSTIN July 05, 2024 10:37
--- NOTE | 2024-07-05 13:49 | PN ---
A 69-year-old obese female with a past medical history of liver cirrhosis (likely secondary to VIDES), hypertension, and no significant alcohol use, presented to the emergency department on July 03, 2024, with progressive shortness of breath, pleuritic chest pain, and productive cough with green sputum for the past 3 days. She also reports low-grade fevers at home, worsening dyspnea with ambulation, and right upper extremity numbness without associated weakness. No prior history of stroke, seizures, or TIA. She denies melena, hematemesis, or hematochezia. She has a known diagnosis of cirrhosis but is unsure of the etiology. She follows outpatient GI and takes lactulose as maintenance. On arrival, she was afebrile and hemodynamically stable. Laboratory evaluation revealed pancytopenia with WBC 1.5, Hb 10.0, Plt 35K, ANC 0.9. Imaging revealed bilateral pulmonary infiltrates concerning for atypical pneumonia. Respiratory panel was positive for Mycoplasma pneumoniae IgM. She was admitted to the medical floor under telemetry monitoring for further evaluation and management of atypical community-acquired pneumonia in the setting of chronic liver disease and pancytopenia. PMH: Hypertension, liver cirrhosis, chronic thrombocytopenia Reports previous history of colonoscopy PHYSICAL EXAM VITALS: GENERAL: ALERT, ORIENTED, APPEARS-NO ACUTE DISTRESS EYES: SCLERAE ANICTERIC, PUPILS EQUAL/REACTIVE, EXTRAOCULAR MUSCLES INTCT ENT/NECK: ORAL MUCOSA W/O LESIONS, OROPHARYNX IS CLEAR, NECK SUPPLE W/O MASSES RESPIRATORY: No LUNGS CLEAR-AUSC/PERCUS ( Minimal crackles noted at bilateral lung bases with rhonchorous breath sounds) CARDIOVASCULAR: REGULAR RATE, REGULAR RHYTHM GASTROINTESTINAL: No ABDOMEN IS SOFT, No TENDER, No DISTENDED; H EPATOSPLENOMEGALY; No BOWEL SOUNDS PRESENT, No PALPABLE MASSES HEMATOLOGY/LYMPHATIC: No CERVICAL ADENOPATHY, No SUPRACLAVICULR ADENOPATHY, No AXILLARY ADENOPATHY, No INGUINAL ADENOPATHY MUSCULOSKELETAL: No CYANOSIS-EXTREMETIES, No CLUBBING, No EDEMA SKIN/BREASTS: No MASSES, No RASH, No HIVES NEUROLOGICAL: GROSSLY INTACT PSYCHOLOGICAL: MINI MENTAL ASSMT INTACT Assessment 1. Neutropenia 2. Anemia 3. Thrombocytopenia 4. Change mental status with elevated ammonia 5. Sepsis with the patient possibly have pneumonia receiving antibiotic treatment. Patient feeling better. Plan 1. Peripheral blood smear showed red blood cells to be normocytic normochromic. There was no fragment cell or schistocyte. There is no teardrop cell. There is no pelger-Huet cell. White blood cell with no blasts. Platelet was normal in morphology and count. 2. There was hypersegmented neutrophils. This patient to be started on folic acid 1 mg p.o. daily and vitamin B12 1000 mcg p.o. daily. 3. 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 We will ask for SPEP, UPEP and free light chain. If there is monoclonal protein we will do a bone marrow biopsy. 4. No need for blood product transfusion 5. Continue antibiotic treatment 6. No need for bone marrow biopsy 7. If this patient stable she could be discharged to follow-up with us as outpatient in the next 2 weeks. Vitals/Labs Vital Signs Date Time Temp Pulse Resp B/P (MAP) Pulse Ox O2 Delivery O2 Flow Rate FiO2 07/05/24 11:55 98.4 74 18 159/71 91 Room Air 07/05/24 11:26 21 07/04/24 15:59 2.0 Laboratory Tests 07/05/24 05:44 Medications Current Medications Ceftriaxone Sodium 1 gm ONCE ONCE IVPB Last administered on 07/03/24at 15:13; Start 07/03/24 at 15:00; Stop 07/03/24 at 15:01; Status DC Azithromycin 250 ml @ 250 mls/hr ONCE ONCE IVPB Last administered on 07/03/24at 15:14; Start 07/03/24 at 15:30; Stop 07/03/24 at 16:29; Status DC Cefepime HCl 2 gm Q12H IVPB Last administered on 07/04/24at 17:46; Start 07/03/24 at 18:00; Stop 07/13/24 at 17:59 Budesonide 0.5 mg BIDRESP IH; Start 07/03/24 at 15:30; Stop 07/03/24 at 16:21; Status DC Albuterol 1 udvial [id number] IH; Start 07/03/24 at 15:30; Stop 07/03/24 at 16:21; Status DC Pantoprazole Sodium 40 mg Q24H IVP Last administered on 07/04/24at 17:46; Start 07/03/24 at 16:00; Stop 08/02/24 at 15:59 Acetaminophen 650 mg Q6H PRN PO; Start 07/03/24 at 16:00; Stop 08/02/24 at 15:59 Ondansetron HCl 4 mg Q6H PRN IVP Last administered on 07/04/24at 19:46; Start 07/03/24 at 16:00; Stop 08/02/24 at 15:59 Lactated Ringer's 1,000 ml @ 75 mls/hr [id number] IV Last administered on 07/05/24at 09:51; Start 07/03/24 at 16:00; Stop 08/02/24 at 15:59 Thiamine HCl 100 mg Q24H IVP Last administered on 07/04/24at 17:51; Start 07/03/24 at 16:00; Stop 08/02/24 at 15:59 Multivitamins Therapeutic 1 tab DAILY PO Last administered on 07/05/24at 09:32; Start 07/04/24 at 09:00; Stop 08/03/24 at 08:59 Budesonide 0.5 mg BIDRESP IH Last administered on 07/05/24at 09:24; Start 07/03/24 at 18:00; Stop 08/02/24 at 17:59 Albuterol 1 udvial [id number] IH Last administered on 07/05/24at 11:23; Start 07/03/24 at 18:00; Stop 08/02/24 at 17:59 Doxycycline Hyclate 250 ml @ 125 mls/hr Q12H IV Last administered on 07/04/24at 17:53; Start 07/03/24 at 16:30; Stop 07/13/24 at 16:29 Lactulose 30 gm BID PO; Start 07/03/24 at 21:00; Stop 07/03/24 at 19:11; Status DC Sodium Chloride 4 ml STK-MED ONCE IH Last administered on 07/03/24at 20:07; Start 07/03/24 at 18:24; Stop 07/03/24 at 18:24; Status DC Lactulose 30 gm TID PO Last administered on 07/04/24at 17:52; Start 07/03/24 at 21:00; Stop 07/05/24 at 09:49; Status DC Potassium Chloride 100 ml @ 100 mls/hr AD PRN IV; Start 07/03/24 at 20:30; Stop 08/02/24 at 20:29 Potassium Chloride 20 meq AD PRN PO; Start 07/03/24 at 20:30; Stop 08/02/24 at 20:29 Potassium Chloride 20 meq AD PRN PO; Start 07/03/24 at 20:30; Stop 08/02/24 at 20:29 Magnesium Sulfate 50 ml @ 0 mls/hr PROTOCOL IV Last administered on 07/04/24at 09:54; Start 07/03/24 at 20:30; Stop 08/02/24 at 20:29 Guaifenesin/ Dextromethorphan 10 ml Q6H PRN PO Last administered on 07/05/24at 09:45; Start 07/03/24 at 23:00; Stop 08/02/24 at 22:59 Sodium Chloride 4 ml STK-MED ONCE IH Last administered on 07/03/24at 23:29; Start 07/03/24 at 22:59; Stop 07/03/24 at 23:00; Status DC Sodium Chloride 4 ml STK-MED ONCE IH; Start 07/04/24 at 06:06; Stop 07/04/24 at 06:06; Status DC Folic Acid 1 mg DAILY PO Last administered on 07/05/24at 09:32; Start 07/04/24 at 14:00; Stop 08/03/24 at 13:59 Vitamin B Complex 1,000 mcg AM IM Last administered on 07/05/24at 09:32; Start 07/04/24 at 14:00; Stop 07/10/24 at 12:00 Lactulose 30 gm DAILY PO; Start 07/06/24 at 09:00; Stop 08/02/24 at 20:59 JOHNNA TEIXEIRA MD July 05, 2024 13:49
--- NOTE | 2024-07-05 16:28 | PN ---
[facility] PROGRESS NOTE Date of Service: July 05, 2024 Time of Service: 16:28 SUBJECTIVE: [69-year-old female admitted for shortness of breaths, fever and productive cough. Chest x-ray showed minimal pulmonary infiltrates, patient is currently on IV cefepime and doxycycline. Patient reported week and lethargic. Patient has history of liver cirrhosis, patient is per having persistent leukopenia, slowly downtrending. Patient has history of liver cirrhosis. At this point, hematology has been consulted. She will continue with current management. Still short of breath using accessory muscles. But currently on room air.] 07/05/24 patient was seen and examined and case discussed with the RN. Continue IV cefepime and doxycycline. Continue to monitor blood counts. REVIEW OF SYSTEMS CONSTITUTIONAL: Denies fevers, chills, or night sweats. No unintentional weight loss reported. NEUROLOGICAL: Denies headache, amaurosis fugax, motor weakness, sensory de ficit, vertigo/spinning sensation, gait abnormalities, or tremors. ENT: No hearing loss, otalgia, otorrhea, rhinitis, rhinorrhea, hoarseness, or sore throat. CARDIOVASCULAR: Denies any exertional angina, dyspnea on exertion, orthopnea, paroxysmal nocturnal dyspnea, palpitations, life-threatening arrhythmias, claudication. PULMONARY: Shortness of breath, productive cough with greenish sputum SLEEP: Denies morning headaches, daytime somnolence or napping. Denies difficulty falling asleep, staying asleep, waking from sleep. Denies knowledge of snoring. GASTROINTESTINAL: Reports having history of liver cirrhosis GENITOURINARY: Denies frequency, urgency, nocturia, hematuria or incontinence (Storage/Irritative symptoms.) Low urinary stream, straining to void, urinary intermittency or hesitancy, splitting of the voiding stream, terminal dribbling. ENDOCRINOLOGIC: Denies polyuria, polydipsia, polyphagia or heat/cold intolerances. HEMATOLOGIC: Denies thrombophilia/previous clots, or coagulopathy/bleeding disorders. ONCOLOGIC: Denies personal history of malignancy. DERMATOLOGIC: Denies rashes or pruritus. PSYCHIATRIC: Denies any suicidal or homicidal ideation. Denies hallucinations. PHYSICAL EXAM GENERAL APPEARANCE: The patient is awake, alert, and oriented, in no acute cardiopulmonary distress. NEUROLOGICAL: Cranial nerves II-XII grossly intact. Motor is 5/5 in bilateral upper and lower extremities proximal to distal. No sensory deficits. HEENT: Face is symmetric. Pupils are equal and reactive. Extraocular movements are intact. NECK: Supple. No JVD. No thyromegaly. No submental, submandibular, pre-/p ostauricular, occipital or supraclavicular lymphadenopathy. CHEST: Normal chest expansion. No Telemetry. LUNGS: Minimal crackles noted at bilateral lung bases with rhonchorous breath sounds CARDIOVASCULAR: Regular. S1 and S2 normal. No appreciable rubs, murmurs or gallops. ABDOMEN: Soft, nontender, and nondistended. There is no rebound, voluntary guarding, or rigidity. : Deferred. No Wagoner. EXTREMITIES: Non-edematous and not cyanotic. No clubbing. Good capillary refill. SKIN: No skin breakdown. Vital Signs (last 8hr) Date Time Temp Pulse Resp B/P (MAP) Pulse Ox O2 Delivery O2 Flow Rate FiO2 07/05/24 11:55 98.4 74 18 159/71 91 Room Air 07/05/24 11:26 71 18 N/A Room Air 21 07/05/24 11:23 71 18 LABS: Laboratory: Test 07/05/24 11:14 07/05/24 05:44 07/04/24 05:21 Range/Units Ammonia 12 11-32 umol/L White Blood Count 1.8 L 4.8-10.8 K/uL Red Blood Count 3.63 L 4.00-5.50 MIL/uL Hemoglobin 10.5 L 12.0-16.0 g/dL Hematocrit 32.3 L 36-48 % Mean Corpuscular Volume 89.0 79-99 fL Mean Corpuscular Hemoglobin 28.9 27.0-33.0 pg Mean Corpuscular Hemoglobin Concent 32.5 32.0-36.0 g/dL Red Cell Distribution Width 14.2 11.0-15.5 % Platelet Count 39 L 130-400 K/uL Mean Platelet Volume 13.0 H 7.5-10.5 fL Nucleated Red Blood Cells 0.0 0.0-0.19 % Sodium Level 142 136-145 mmol/L Potassium Level 4.0 3.5-5.1 mmol/L Chloride Level 110 101-111 mmol/L Carbon Dioxide Level 26 21-32 mmol/L Blood Urea Nitrogen 12 7-18 mg/dL Creatinine 0.8 0.5-1.0 mg/dL Glomerular Filtration Rate Calc 81 >90 mL/min Random Glucose 102 70-105 mg/dL Total Calcium 8.3 L 8.5-10.1 mg/dL Magnesium Level 2.00 1.80-2.40 mg/dL Immature Granulocyte % (Auto) 0.0 0-1 % Neutrophils (%) (Auto) 63.1 40.0-77.0 % Lymphocytes (%) (Auto) 22.8 21.0-51.0 % Monocytes (%) (Auto) 10.7 3.0-13.0 % Eosinophils (%) (Auto) 3.4 0.0-8.0 % Basophils (%) (Auto) 0.0 0.0-5.0 % Neutrophils # (Auto) 0.9 L 1.8-7.7 K/uL Lymphocytes # (Auto) 0.3 L 1.0-4.8 K/uL Monocytes # (Auto) 0.2 0.1-1.0 K/uL Eosinophils # (Auto) 0.05 0.00-0.70 K/uL Basophils # (Auto) 0.00 0.00-0.20 K/uL Absolute Immature Granulocyte (auto 0.00 0-1 K/uL Total Bilirubin 0.5 # 0.2-1.0 mg/dL Aspartate Amino Transf (AST/SGOT) 51 H 10-37 U/L Alanine Aminotransferase (ALT/SGPT) 32 # 12-78 U/L Alkaline Phosphatase 113 50-136 U/L Total Protein 6.9 6.0-8.3 g/dL Albumin 2.8 L 3.5-5.0 g/dL Mycoplasma pneumoniae IgM Antibody POSITIVE H NEGATIVE Current Medications Medications (Trade) Dose Ordered Sig/Taylor Route PRN Reason Start Time Stop Time Status Last Admin Dose Admin Acetaminophen (TYLenol 325MG TAB) 650 mg Q6H PRN PO MILD PAIN (1-3) 07/03/24 16:00 08/02/24 15:59 Albuterol (DUOneb) 1 udvial [id number] 07/03/24 15:30 07/03/24 16:21 DC Albuterol (DUOneb) 1 udvial [id number] 07/03/24 18:00 08/02/24 17:59 07/05/24 11:23 1 UDVIAL Budesonide (Pulmicort 0.5 Mg/2ml) 0.5 mg BIDRESP IH 07/03/24 15:30 07/03/24 16:21 DC Budesonide (Pulmicort 0.5 Mg/2ml) 0.5 mg BIDRESP IH 07/03/24 18:00 08/02/24 17:59 07/05/24 09:24 0.5 MG Cefepime HCl (MAXipime 2 gm vial) 2 gm Q12H IVPB 07/03/24 18:00 07/13/24 17:59 07/04/24 17:46 2 GM Doxycycline Hyclate 250 ml @ 125 mls/hr Q12H IV 07/03/24 16:30 07/13/24 16:29 07/04/24 17:53 125 MLS/HR Folic Acid (FOLic ACID 1 MG TABLET) 1 mg DAILY PO 07/04/24 14:00 08/03/24 13:59 07/05/24 09:32 1 MG Guaifenesin/ Dextromethorphan (RobiTUSSin DM 200/20MG 10ML) 10 ml Q6H PRN PO COUGH 07/03/24 23:00 08/02/24 22:59 07/05/24 09:45 10 ML Lactated Ringer's 1,000 ml @ 75 mls/hr [id number] IV 07/03/24 16:00 08/02/24 15:59 07/05/24 09:51 75 MLS/HR Lactulose (Constulose 20gm/ 30ml Udcup) 30 gm BID PO 07/03/24 21:00 07/03/24 19:11 DC Lactulose (Constulose 20gm/ 30ml Udcup) 30 gm DAILY PO 07/06/24 09:00 08/02/24 20:59 Lactulose (Constulose 20gm/ 30ml Udcup) 30 gm TID PO 07/03/24 21:00 07/05/24 09:49 DC 07/04/24 17:52 30 GM Magnesium Sulfate 50 ml @ 0 mls/hr PROTOCOL IV 07/03/24 20:30 08/02/24 20:29 07/04/24 09:54 25 MLS/HR Multivitamins Therapeutic (Multivitamin Tablet) 1 tab DAILY PO 07/04/24 09:00 08/03/24 08:59 07/05/24 09:32 1 TAB Ondansetron HCl (zoFRAN 4MG INJ) 4 mg Q6H PRN IVP NAUSEA/VOMITING 07/03/24 16:00 08/02/24 15:59 07/04/24 19:46 4 MG Pantoprazole Sodium (PROTonix 40MG INJ) 40 mg Q24H IVP 07/03/24 16:00 08/02/24 15:59 07/04/24 17:46 40 MG Potassium Chloride 100 ml @ 100 mls/hr AD PRN IV POTASSIUM PROTOCOL 07/03/24 20:30 08/02/24 20:29 Potassium Chloride (K-Dur/Klor-Con 20meq) 20 meq AD PRN PO POTASSIUM PROTOCOL 07/03/24 20:30 08/02/24 20:29 Potassium Chloride (KCl 10% Elixir 20meq/15ml) 20 meq AD PRN PO POTASSIUM PROTOCOL 07/03/24 20:30 08/02/24 20:29 Thiamine HCl (Vitamin B-1) 100 mg Q24H IVP 07/03/24 16:00 08/02/24 15:59 07/04/24 17:51 100 MG Vitamin B Complex (Vitamin B-12) 1,000 mcg AM IM 07/04/24 14:00 07/10/24 12:00 07/05/24 09:32 1,000 MCG DIAGNOSTICS / RADIOLOGY: [ ] ASSESSMENT: Developing community-acquired pneumonia, POA Leukopenia, POA Right upper extremity numbness x3 days, POA Underlying history of cirrhosis of the liver, POA Moderate thrombocytopenia secondary to underlying cirrhosis w/portal HTN, POA Obesity, POA Hypertension, POA Debility, POA PLAN: Patient will be admitted to medical-surgical floor under telemetry monitoring Continue with current IV antibiotics with cefepime/doxycycline, patient reports having productive cough in the setting of leukopenia and underlying cirrhosis, chest x-ray showed concerns for bilateral infiltrates CT chest without contrast reviewed We follow up the respiratory culture,, mycoplasma serologies, urine Legionella and streptococcal antigen testing Patient has mild wheezing on examination, we will start patient on scheduled nebulizers and albuterol Appreciate recommendations from film booker Patient is not showing signs of overt hepatic encephalopathy, we will start patient on lactulose 30 mL t.i.d., we will titrate so patient has at least three bowel movements daily, we will monitor mental status closely With regards to numbness involving the right upper extremity, we will follow up CT head without contrast, we will request associated tele neurology evaluation, we will see if Neurology requests MRI this admission for further workup this admission, pt also complaint of fhaving right shoulder pain, will f/u on X rays We will keep patient on IV lactated Ringer's 75 mL/hour times 24 hours Home medications will be reconciled and updated once available All labs will be repeated in the morning Patient was seen and examined with Dr. Arteaga, above plan was formulated SOPHIA ARTEAGA MD July 05, 2024 16:28
[2024-07-05] MEDS: SODIUM CHLORIDE 3% FOR INHALATION 4 ML/AMP VIAL.NEB IH ONE (23:19)
[2024-07-06] VITALS (15 sets, daily range): BP systolic 132–158; BP diastolic 52–74; PULSE 65–89; RESP 16–20; TEMP 97.5–98.7; O2SAT 96–98
[2024-07-06 05:25] LABS: CREATININE 0.8 mg/dL (0.5-1.0)
--- NOTE | 2024-07-06 09:30 | PN ---
[facility] PROGRESS NOTE Date Patient Seen: July 06, 2024 Time of Visit: 09:29 Supervising Physician: [Dr. Devries] Primary Care Physician: [[facility]] Outpatient Specialists: [ ] Inpatient Consults: [[facility]] PROBLEM LIST: Atypical community-acquired pneumonia due to Mycoplasma pneumoniae Pancytopenia, in setting of pneumonia and liver cirrhosis Right upper extremity numbness, non-acute CT head Liver cirrhosis with portal hypertension Obesity Hypertension Debility Plan: Continue cefepime and doxycycline for now Start fluconazole 200mg daily Cough medication prn Follow sputum culture results Decrease lactulose to 20mg daily Monitor response to treatment Follow oncology recommendation Further management per hospital course All other problems per primary INTERVAL HISTORY: [Patient is evaluated at bedside. States she continues with cough, denies phlegm but states is thick mucus secretion. Her lungs are clear to auscultation without wheezing, rhonchi or congestion. Her sputum culture shows gm positive cocci, pending final. States she had about six episodes of loose bowel movements last night, she attributed to her lactulose which she states takes daily at home. Has been receiving it scheduled here at 3 times daily. She continues saturating well on room air, no acute respiratory distress. She is pending labs to evaluate for bone marrow suppression with Oncology.] 07/06 patient is evaluated at bedside. She continues with productive cough, currently saturating well on room air. Her WBCs are decreased, oncology recommendations noted and appreciated. Her sputum cultures growing Lexi, we will initiate treatment and immunocompromise patient. Continues on IV antibiotics for treatment of mycoplasma pneumoniae. Her ammonia levels are improved. REVIEW OF SYSTEMS: 12 point ROS reviewed with patient. Pertinent positives mentioned above. Otherwise negative. PHYSICAL EXAM: GENERAL: alert, weak, awake oriented x 3 HEENT: EOMI, Sclera non icteric, moist mucosa NECK: Supple, no JVD, trachea midline LUNGS: Clear breath sounds bilaterally. No wheezes HEART: Regular rate and rhythm. Normal S1 and S2, without murmurs ABD: Abdomen soft, nontender. Bowel sounds present EXT: No clubbing cyanosis or edema NEURO: Alert and oriented to person, follows commands Vital Signs (last 8hr) Date Time Temp Pulse Resp B/P (MAP) Pulse Ox O2 Delivery O2 Flow Rate FiO2 07/06/24 08:00 98.8 89 19 153/74 93 Room Air 07/06/24 06:33 65 18 N/A Room Air 21 07/06/24 06:30 65 20 07/06/24 04:19 98.8 70 16 132/64 97 Room Air LABS: Hematology Labs: Test 07/05/24 05:44 Range/Units White Blood Count 1.8 L 4.8-10.8 K/uL Red Blood Count 3.63 L 4.00-5.50 MIL/uL Hemoglobin 10.5 L 12.0-16.0 g/dL Hematocrit 32.3 L 36-48 % Mean Corpuscular Volume 89.0 79-99 fL Mean Corpuscular Hemoglobin 28.9 27.0-33.0 pg Mean Corpuscular Hemoglobin Concent 32.5 32.0-36.0 g/dL Red Cell Distribution Width 14.2 11.0-15.5 % Platelet Count 39 L 130-400 K/uL Mean Platelet Volume 13.0 H 7.5-10.5 fL Nucleated Red Blood Cells 0.0 0.0-0.19 % Chemistry Labs: Test 07/06/24 05:00 07/05/24 11:14 07/05/24 05:44 Range/Units Sodium Level 141 136-145 mmol/L Potassium Level 4.0 3.5-5.1 mmol/L Chloride Level 110 101-111 mmol/L Carbon Dioxide Level 27 21-32 mmol/L Blood Urea Nitrogen 8 7-18 mg/dL Creatinine 0.8 0.5-1.0 mg/dL Glomerular Filtration Rate Calc 81 >90 mL/min Random Glucose 96 70-105 mg/dL Total Calcium 8.4 L 8.5-10.1 mg/dL Ammonia 12 11-32 umol/L Magnesium Level 2.00 1.80-2.40 mg/dL DIAGNOSTICS / RADIOLOGY RESULTS: [ ] PLAN NEURO: Minimize central acting medications as possible. Maintain fall precautions, adequate lighting during the day PULMONARY: Supplemental 02 as needed. Maintain aspiration precautions at all times CARDIOVASCULAR: Follow hemodynamics. Vital signs per facility protocol GI & NUTRITION: Continue with nutritional support. Continue stool softeners and laxatives as needed. KIDNEYS & ELECTROLYTES: Strict monitoring of intake, output and overall fluid balance. Avoid nephrotoxic medications to the extent possible. Medications to be dosed according to renal function. Monitor electrolytes and replace as needed ENDOCRINE: Maintain blood glucose between 100-180 at all times. Hypoglycemia protocol in place INFECTIOUS DISEASE: Trend temperature, WBC and procalcitonin level Follow cultures, deescalate antibiotics as soon as possible. Panculture if new onset fever ONCOLOGY/HEMATOLOGY/COAGULATION: Monitor for s/s of bleeding Monitor hemoglobin, coagulation studies as needed SKIN: Pressure ulcer prevention per facility protocol Specialty mattress ORTHO/REHAB: Continue PT/OT Prophylaxis: Continue GI and DVT prophylaxis Code Status: Full Resuscitation Disposition: TBD Other: Total patient care time exceeds 35 minutes excluding all procedures. NEGRA AGUSTIN July 06, 2024 09:30
[2024-07-06] MEDS: LACTULOSE 20 GM/30 ML UDCUP PO SCH (10:57)
--- NOTE | 2024-07-06 12:10 | PN ---
A 69-year-old obese female with a past medical history of liver cirrhosis (likely secondary to VIDES), hypertension, and no significant alcohol use, presented to the emergency department on July 03, 2024, with progressive shortness of breath, pleuritic chest pain, and productive cough with green sputum for the past 3 days. She also reports low-grade fevers at home, worsening dyspnea with ambulation, and right upper extremity numbness without associated weakness. No prior history of stroke, seizures, or TIA. She denies melena, hematemesis, or hematochezia. She has a known diagnosis of cirrhosis but is unsure of the etiology. She follows outpatient GI and takes lactulose as maintenance. On arrival, she was afebrile and hemodynamically stable. Laboratory evaluation revealed pancytopenia with WBC 1.5, Hb 10.0, Plt 35K, ANC 0.9. Imaging revealed bilateral pulmonary infiltrates concerning for atypical pneumonia. Respiratory panel was positive for Mycoplasma pneumoniae IgM. She was admitted to the medical floor under telemetry monitoring for further evaluation and management of atypical community-acquired pneumonia in the setting of chronic liver disease and pancytopenia. PHYSICAL EXAM VITALS: GENERAL: ALERT, ORIENTED, APPEARS-NO ACUTE DISTRESS EYES: SCLERAE ANICTERIC, PUPILS EQUAL/REACTIVE, EXTRAOCULAR MUSCLES INTCT ENT/NECK: ORAL MUCOSA W/O LESIONS, OROPHARYNX IS CLEAR, NECK SUPPLE W/O MASSES RESPIRATORY: No LUNGS CLEAR-AUSC/PERCUS ( Minimal crackles noted at bilateral lung bases with rhonchorous breath sounds) CARDIOVASCULAR: REGULAR RATE, REGULAR RHYTHM GASTROINTESTINAL: No ABDOMEN IS SOFT, No TENDER, No DISTENDED; H EPATOSPLENOMEGALY; No BOWEL SOUNDS PRESENT, No PALPABLE MASSES HEMATOLOGY/LYMPHATIC: No CERVICAL ADENOPATHY, No SUPRACLAVICULR ADENOPATHY, No AXILLARY ADENOPATHY, No INGUINAL ADENOPATHY MUSCULOSKELETAL: No CYANOSIS-EXTREMETIES, No CLUBBING, No EDEMA SKIN/BREASTS: No MASSES, No RASH, No HIVES NEUROLOGICAL: GROSSLY INTACT PSYCHOLOGICAL: MINI MENTAL ASSMT INTACT Assessment 1. Neutropenia. White blood count 1.8K 2. Anemia. The anemia is 10.5 g/deciliter 3. Thrombocytopenia. Platelet count 39K 4. Change mental status with elevated ammonia 5. Sepsis with the patient possibly have pneumonia receiving antibiotic treatment. Patient feeling better. Plan 1. Peripheral blood smear showed red blood cells to be normocytic normochromic. There was no fragment cell or schistocyte. There is no teardrop cell. There is no pelger-Huet cell. White blood cell with no blasts. Platelet was normal in morphology and count. 2. There was hypersegmented neutrophils. This patient to be started on folic acid 1 mg p.o. daily and vitamin B12 1000 mcg p.o. daily. 3. 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 We will ask for SPEP, UPEP and free light chain. If there is monoclonal protein we will do a bone marrow biopsy. 4. No need for blood product transfusion 5. Continue antibiotic treatment 6. No need for bone marrow biopsy 7. If this patient stable she could be discharged to follow-up with us as outpatient in the next 2 weeks. Vitals/Labs Vital Signs Date Time Temp Pulse Resp B/P (MAP) Pulse Ox O2 Delivery O2 Flow Rate FiO2 07/06/24 11:01 70 18 N/A Room Air 21 07/06/24 08:00 98.8 153/74 93 07/05/24 21:05 0 Laboratory Tests 07/06/24 05:00 Medications Current Medications Ceftriaxone Sodium 1 gm ONCE ONCE IVPB Last administered on 07/03/24at 15:13; Start 07/03/24 at 15:00; Stop 07/03/24 at 15:01; Status DC Azithromycin 250 ml @ 250 mls/hr ONCE ONCE IVPB Last administered on 07/03/24at 15:14; Start 07/03/24 at 15:30; Stop 07/03/24 at 16:29; Status DC Cefepime HCl 2 gm Q12H IVPB Last administered on 07/05/24at 21:06; Start 07/03/24 at 18:00; Stop 07/13/24 at 17:59 Budesonide 0.5 mg BIDRESP IH; Start 07/03/24 at 15:30; Stop 07/03/24 at 16:21; Status DC Albuterol 1 udvial [id number] IH; Start 07/03/24 at 15:30; Stop 07/03/24 at 16:21; Status DC Pantoprazole Sodium 40 mg Q24H IVP Last administered on 07/05/24at 16:28; Start 07/03/24 at 16:00; Stop 08/02/24 at 15:59 Acetaminophen 650 mg Q6H PRN PO; Start 07/03/24 at 16:00; Stop 08/02/24 at 15:59 Ondansetron HCl 4 mg Q6H PRN IVP Last administered on 07/04/24at 19:46; Start 07/03/24 at 16:00; Stop 08/02/24 at 15:59 Lactated Ringer's 1,000 ml @ 75 mls/hr [id number] IV Last administered on 07/05/24at 21:13; Start 07/03/24 at 16:00; Stop 08/02/24 at 15:59 Thiamine HCl 100 mg Q24H IVP Last administered on 07/05/24at 16:28; Start 07/03/24 at 16:00; Stop 08/02/24 at 15:59 Multivitamins Therapeutic 1 tab DAILY PO Last administered on 07/06/24at 10:56; Start 07/04/24 at 09:00; Stop 08/03/24 at 08:59 Budesonide 0.5 mg BIDRESP IH Last administered on 07/06/24at 06:30; Start 07/03/24 at 18:00; Stop 08/02/24 at 17:59 Albuterol 1 udvial [id number] IH Last administered on 07/06/24at 11:00; Start 07/03/24 at 18:00; Stop 08/02/24 at 17:59 Doxycycline Hyclate 250 ml @ 125 mls/hr Q12H IV Last administered on 07/06/24at 04:32; Start 07/03/24 at 16:30; Stop 07/13/24 at 16:29 Lactulose 30 gm BID PO; Start 07/03/24 at 21:00; Stop 07/03/24 at 19:11; Status DC Sodium Chloride 4 ml STK-MED ONCE IH Last administered on 07/03/24at 20:07; Start 07/03/24 at 18:24; Stop 07/03/24 at 18:24; Status DC Lactulose 30 gm TID PO Last administered on 07/04/24at 17:52; Start 07/03/24 at 21:00; Stop 07/05/24 at 09:49; Status DC Potassium Chloride 100 ml @ 100 mls/hr AD PRN IV; Start 07/03/24 at 20:30; Stop 08/02/24 at 20:29 Potassium Chloride 20 meq AD PRN PO; Start 07/03/24 at 20:30; Stop 08/02/24 at 20:29 Potassium Chloride 20 meq AD PRN PO; Start 07/03/24 at 20:30; Stop 08/02/24 at 20:29 Magnesium Sulfate 50 ml @ 0 mls/hr PROTOCOL IV Last administered on 07/04/24at 09:54; Start 07/03/24 at 20:30; Stop 08/02/24 at 20:29 Guaifenesin/ Dextromethorphan 10 ml Q6H PRN PO Last administered on 07/05/24at 16:28; Start 07/03/24 at 23:00; Stop 08/02/24 at 22:59 Sodium Chloride 4 ml STK-MED ONCE IH Last administered on 07/03/24at 23:29; Start 07/03/24 at 22:59; Stop 07/03/24 at 23:00; Status DC Sodium Chloride 4 ml STK-MED ONCE IH Last administered on 07/05/24at 23:19; Start 07/04/24 at 06:06; Stop 07/04/24 at 06:06; Status DC Folic Acid 1 mg DAILY PO Last administered on 07/06/24at 10:56; Start 07/04/24 at 14:00; Stop 08/03/24 at 13:59 Vitamin B Complex 1,000 mcg AM IM Last administered on 07/06/24at 11:02; Start 07/04/24 at 14:00; Stop 07/10/24 at 12:00 Lactulose 30 gm DAILY PO Last administered on 07/06/24at 10:57; Start 07/06/24 at 09:00; Stop 08/02/24 at 20:59 JOHNNA TEIXEIRA MD July 06, 2024 12:10
[2024-07-06] MEDS: fluCONazole 200 MG/NS 100 ML IVPB SCH (14:20)
--- NOTE | 2024-07-06 15:41 | PN ---
[facility] PROGRESS NOTE Date of Service: July 06, 2024 Time of Service: 15:41 SUBJECTIVE: [69-year-old female admitted for shortness of breaths, fever and productive cough. Chest x-ray showed minimal pulmonary infiltrates, patient is currently on IV cefepime and doxycycline. Patient reported week and lethargic. Patient has history of liver cirrhosis, patient is per having persistent leukopenia, slowly downtrending. Patient has history of liver cirrhosis. At this point, hematology has been consulted. She will continue with current management. Still short of breath using accessory muscles. But currently on room air.] 07/05/24 patient was seen and examined and case discussed with the RN. Continue IV cefepime and doxycycline. Continue to monitor blood counts. 07/06/24 patient was seen and examined. Case discussed with the RN. He was feeling slightly better has some cough. Continue IV cefepime and doxycycline REVIEW OF SYSTEMS CONSTITUTIONAL: Denies fevers, chills, or night sweats. No unintentional weight loss reported. NEUROLOGICAL: Denies headache, amaurosis fugax, motor weakness, sensory deficit, vertigo/spinning sensation, gait abnormalities, or tremors. ENT: No hearing loss, otalgia, otorrhea, rhinitis, rhinorrhea, hoarseness, or sore throat. CARDIOVASCULAR: Denies any exertional angina, dyspnea on exertion, orthopnea, paroxysmal nocturnal dyspnea, palpitations, life-threatening arrhythmias, claudication. PULMONARY: Shortness of breath, productive cough with greenish sputum SLEEP: Denies morning headaches, daytime somnolence or napping. Denies difficulty falling asleep, staying asleep, waking from sleep. Denies knowledge of snoring. GASTROINTESTINAL: Reports having history of liver cirrhosis GENITOURINARY: Denies frequency, urgency, nocturia, hematuria or incontinence (Storage/Irritative symptoms.) Low urinary stream, straining to void, urinary intermittency or hesitancy, splitting of the voiding stream, terminal dribbling. ENDOCRINOLOGIC: Denies polyuria, polydipsia, polyphagia or heat/cold intolerances. HEMATOLOGIC: Denies thrombophilia/previous clots, or coagulopathy/bleeding disorders. ONCOLOGIC: Denies personal history of malignancy. DERMATOLOGIC: Denies rashes or pruritus. PSYCHIATRIC: Denies any suicidal or homicidal ideation. Denies hallucinations. PHYSICAL EXAM GENERAL APPEARANCE: The patient is awake, alert, and oriented, in no acute cardiopulmonary distress. NEUROLOGICAL: Cranial nerves II-XII grossly intact. Motor is 5/5 in bilateral upper and lower extremities proximal to distal. No sensory deficits. HEENT: Face is symmetric. Pupils are equal and reactive. Extraocular movements are intact. NECK: Supple. No JVD. No thyromegaly. No submental, submandibular, pre- /postauricular, occipital or supraclavicular lymphadenopathy. CHEST: Normal chest expansion. No Telemetry. LUNGS: Minimal crackles noted at bilateral lung bases with rhonchorous breath sounds CARDIOVASCULAR: Regular. S1 and S2 normal. No appreciable rubs, murmurs or gallops. ABDOMEN: Soft, nontender, and nondistended. There is no rebound, voluntary guarding, or rigidity. : Deferred. No Wagoner. EXTREMITIES: Non-edematous and not cyanotic. No clubbing. Good capillary refill. SKIN: No skin breakdown. Vital Signs (last 8hr) Date Time Temp Pulse Resp B/P (MAP) Pulse Ox O2 Delivery O2 Flow Rate FiO2 07/06/24 12:00 98.1 75 17 142/60 95 Room Air 07/06/24 11:01 70 18 N/A Room Air 21 07/06/24 11:00 70 20 07/06/24 08:00 98.8 89 19 153/74 93 Room Air LABS: Laboratory: Test 07/06/24 05:00 07/05/24 11:14 07/05/24 05:44 Range/Units Sodium Level 141 136-145 mmol/L Potassium Level 4.0 3.5-5.1 mmol/L Chloride Level 110 101-111 mmol/L Carbon Dioxide Level 27 21-32 mmol/L Blood Urea Nitrogen 8 7-18 mg/dL Creatinine 0.8 0.5-1.0 mg/dL Glomerular Filtration Rate Calc 81 >90 mL/min Random Glucose 96 70-105 mg/dL Total Calcium 8.4 L 8.5-10.1 mg/dL Ammonia 12 11-32 umol/L White Blood Count 1.8 L 4.8-10.8 K/uL Red Blood Count 3.63 L 4.00-5.50 MIL/uL Hemoglobin 10.5 L 12.0-16.0 g/dL Hematocrit 32.3 L 36-48 % Mean Corpuscular Volume 89.0 79-99 fL Mean Corpuscular Hemoglobin 28.9 27.0-33.0 pg Mean Corpuscular Hemoglobin Concent 32.5 32.0-36.0 g/dL Red Cell Distribution Width 14.2 11.0-15.5 % Platelet Count 39 L 130-400 K/uL Mean Platelet Volume 13.0 H 7.5-10.5 fL Nucleated Red Blood Cells 0.0 0.0-0.19 % Magnesium Level 2.00 1.80-2.40 mg/dL Current Medications Medications (Trade) Dose Ordered Sig/Taylor Route PRN Reason Start Time Stop Time Status Last Admin Dose Admin Acetaminophen (TYLenol 325MG TAB) 650 mg Q6H PRN PO MILD PAIN (1-3) 07/03/24 16:00 08/02/24 15:59 Albuterol (DUOneb) 1 udvial [id number] 07/03/24 15:30 07/03/24 16:21 DC Albuterol (DUOneb) 1 udvial [id number] IH 07/03/24 18:00 08/02/24 17:59 07/06/24 11:00 1 UDVIAL Budesonide (Pulmicort 0.5 Mg/2ml) 0.5 mg BIDRESP IH 07/03/24 15:30 07/03/24 16:21 DC Budesonide (Pulmicort 0.5 Mg/2ml) 0.5 mg BIDRESP IH 07/03/24 18:00 08/02/24 17:59 07/06/24 06:30 0.5 MG Cefepime HCl (MAXipime 2 gm vial) 2 gm Q12H IVPB 07/03/24 18:00 07/13/24 17:59 07/05/24 21:06 2 GM Doxycycline Hyclate 250 ml @ 125 mls/hr Q12H IV 07/03/24 16:30 07/13/24 16:29 07/06/24 04:32 125 MLS/HR Fluconazole/ Sodium Chloride (DiFLUCan 200 MG/ NS 100 ML) 200 mg Q24H IVPB 07/06/24 12:30 08/05/24 12:29 07/06/24 14:20 200 MG Folic Acid (FOLic ACID 1 MG TABLET) 1 mg DAILY PO 07/04/24 14:00 08/03/24 13:59 07/06/24 10:56 1 MG Guaifenesin/ Dextromethorphan (RobiTUSSin DM 200/20MG 10ML) 10 ml Q6H PRN PO COUGH 07/03/24 23:00 08/02/24 22:59 07/05/24 16:28 10 ML Lactated Ringer's 1,000 ml @ 75 mls/hr [id number] IV 07/03/24 16:00 08/02/24 15:59 07/06/24 10:40 75 MLS/HR Lactulose (Constulose 20gm/ 30ml Udcup) 30 gm BID PO 07/03/24 21:00 07/03/24 19:11 DC Lactulose (Constulose 20gm/ 30ml Udcup) 30 gm DAILY PO 07/06/24 09:00 08/02/24 20:59 07/06/24 10:57 30 GM Lactulose (Constulose 20gm/ 30ml Udcup) 30 gm TID PO 07/03/24 21:00 07/05/24 09:49 DC 07/04/24 17:52 30 GM Magnesium Sulfate 50 ml @ 0 mls/hr PROTOCOL IV 07/03/24 20:30 08/02/24 20:07/04/24 09:54 25 MLS/HR Multivitamins Therapeutic (Multivitamin Tablet) 1 tab DAILY PO 07/04/24 09:00 08/03/24 08:59 07/06/24 10:56 1 TAB Ondansetron HCl (zoFRAN 4MG INJ) 4 mg Q6H PRN IVP NAUSEA/VOMITING 07/03/24 16:00 08/02/24 15:59 07/04/24 19:46 4 MG Pantoprazole Sodium (PROTonix 40MG INJ) 40 mg Q24H IVP 07/03/24 16:00 08/02/24 15:59 07/05/24 16:28 40 MG Potassium Chloride 100 ml @ 100 mls/hr AD PRN IV POTASSIUM PROTOCOL 07/03/24 20:30 08/02/24 20:29 Potassium Chloride (K-Dur/Klor-Con 20meq) 20 meq AD PRN PO POTASSIUM PROTOCOL 07/03/24 20:30 08/02/24 20:29 Potassium Chloride (KCl 10% Elixir 20meq/15ml) 20 meq AD PRN PO POTASSIUM PROTOCOL 07/03/24 20:30 08/02/24 20:29 Thiamine HCl (Vitamin B-1) 100 mg Q24H IVP 07/03/24 16:00 08/02/24 15:59 07/05/24 16:28 100 MG Vitamin B Complex (Vitamin B-12) 1,000 mcg AM IM 07/04/24 14:00 07/10/24 12:00 07/06/24 11:02 1,000 MCG DIAGNOSTICS / RADIOLOGY: [ ] ASSESSMENT: Developing community-acquired pneumonia, POA Leukopenia, POA Right upper extremity numbness x3 days, POA Underlying history of cirrhosis of the liver, POA Moderate thrombocytopenia secondary to underlying cirrhosis w/portal HTN, POA Obesity, POA Hypertension, POA Debility, POA PLAN: Patient will be admitted to medical-surgical floor under telemetry monitoring Continue with current IV antibiotics with cefepime/doxycycline, patient reports having productive cough in the setting of leukopenia and underlying cirrhosis, chest x-ray showed concerns for bilateral infiltrates CT chest without contrast reviewed We follow up the respiratory culture,, mycoplasma serologies, urine Legionella and streptococcal antigen testing Patient has mild wheezing on examination, we will start patient on scheduled nebulizers and albuterol Appreciate recommendations from library circulation technician Patient is not showing signs of overt hepatic encephalopathy, we will start patient on lactulose 30 mL t.i.d., we will titrate so patient has at least three bowel movements daily, we will monitor mental status closely With regards to numbness involving the right upper extremity, we will follow up CT head without contrast, we will request associated tele neurology evaluation, we will see if Neurology requests MRI this admission for further workup this admission, pt also complaint of fhaving right shoulder pain, will f/u on X rays We will keep patient on IV lactated Ringer's 75 mL/hour times 24 hours Home medications will be reconciled and updated once available All labs will be repeated in the morning Patient was seen and examined with Dr. Arteaga, above plan was formulated SOPHIA ARTEAGA MD July 06, 2024 15:41
--- NOTE | 2024-07-06 16:37 | NUR ---
Discharge Planning: Persistent leukopenia, wbcs at 1.[address] Leach is following. Sputum culture is positive. Pt. continues on iv abx. Pt. is on room air.
--- NOTE | 2024-07-06 17:30 | NUR ---
BEDSIDE SWALLOW EVAL COMPLETED. No s/s of aspiration. Recommend regular solids, thin liquids and pills whole with liquids as tolerated. Compensatory strategies: 1. sit upright during oral intake CLIPPER MACHINE OPERATOR reviewed results and recommendations with patient and nurse Chandrika. CLIPPER MACHINE OPERATOR educated patient on risks and consequences of aspiration. Speech therapy not warranted at this time. All questions answered. Addendum: 07/06/[address] [facility] EWING Amended: Links added.
[2024-07-06] MEDS: ceFEPime HCL 2 GM VIAL IVPB SCH (20:52)
[2024-07-07] VITALS (14 sets, daily range): BP systolic 138–163; BP diastolic 59–70; PULSE 70–81; RESP 18–20; TEMP 97.8–98.4; O2SAT 96–99
--- NOTE | 2024-07-07 07:28 | PN ---
A 69-year-old obese female with a past medical history of liver cirrhosis (likely secondary to VIDES), hypertension, and no significant alcohol use, presented to the emergency department on July 03, 2024, with progressive shortness of breath, pleuritic chest pain, and productive cough with green sputum for the past 3 days. She also reports low-grade fevers at home, worsening dyspnea with ambulation, and right upper extremity numbness without associated weakness. No prior history of stroke, seizures, or TIA. She denies melena, hematemesis, or hematochezia. She has a known diagnosis of cirrhosis but is unsure of the etiology. She follows outpatient GI and takes lactulose as maintenance. On arrival, she was afebrile and hemodynamically stable. Laboratory evaluation revealed pancytopenia with WBC 1.5, Hb 10.0, Plt 35K, ANC 0.9. Imaging revealed bilateral pulmonary infiltrates concerning for atypical pneumonia. Respiratory panel was positive for Mycoplasma pneumoniae IgM. She was admitted to the medical floor under telemetry monitoring for further evaluation and management of atypical community-acquired pneumonia in the setting of chronic liver disease and pancytopenia. PHYSICAL EXAM VITALS: GENERAL: ALERT, ORIENTED, APPEARS-NO ACUTE DISTRESS EYES: SCLERAE ANICTERIC, PUPILS EQUAL/REACTIVE, EXTRAOCULAR MUSCLES INTCT ENT/NECK: ORAL MUCOSA W/O LESIONS, OROPHARYNX IS CLEAR, NECK SUPPLE W/O MASSES RESPIRATORY: No LUNGS CLEAR-AUSC/PERCUS ( Minimal crackles noted at bilateral lung bases with rhonchorous breath sounds) CARDIOVASCULAR: REGULAR RATE, REGULAR RHYTHM GASTROINTESTINAL: No ABDOMEN IS SOFT, No TENDER, No DISTENDED; HEPATOSPLENOME JULIA; No BOWEL SOUNDS PRESENT, No PALPABLE MASSES HEMATOLOGY/LYMPHATIC: No CERVICAL ADENOPATHY, No SUPRACLAVICULR ADENOPATHY, No AXILLARY ADENOPATHY, No INGUINAL ADENOPATHY MUSCULOSKELETAL: No CYANOSIS-EXTREMETIES, No CLUBBING, No EDEMA SKIN/BREASTS: No MASSES, No RASH, No HIVES NEUROLOGICAL: GROSSLY INTACT PSYCHOLOGICAL: MINI MENTAL ASSMT INTACT Assessment 1. Neutropenia. White blood count 1.8K 2. Anemia. The anemia is 10.5 g/deciliter 3. Thrombocytopenia. Platelet count 39K 4. Change mental status with elevated ammonia 5. Sepsis with the patient possibly have pneumonia receiving antibiotic treatment. Patient feeling better. Plan 1. Peripheral blood smear showed red blood cells to be normocytic normochromic. There was no fragment cell or schistocyte. There is no teardrop cell. There is no pelger-Huet cell. White blood cell with no blasts. Platelet was normal in morphology and count. 2. There was hypersegmented neutrophils. This patient to be started on folic acid 1 mg p.o. daily and vitamin B12 1000 mcg p.o. daily. 3. 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 We will ask for SPEP, UPEP and free light chain. If there is monoclonal protein we will do a bone marrow biopsy. 4. No need for blood product transfusion 5. Continue antibiotic treatment 6. No need for bone marrow biopsy 7. If this patient stable she could be discharged to follow-up with us as outpatient in the next 2 weeks. Vitals/Labs Vital Signs Date Time Temp Pulse Resp B/P (MAP) Pulse Ox O2 Delivery O2 Flow Rate FiO2 07/07/24 07:25 71 18 N/A Room Air 21 07/07/24 03:39 97.9 145/68 95 07/07/24 00:09 0 Medications Current Medications Ceftriaxone Sodium 1 gm ONCE ONCE IVPB Last administered on 07/03/24at 15:13; Start 07/03/24 at 15:00; Stop 07/03/24 at 15:01; Status DC Azithromycin 250 ml @ 250 mls/hr ONCE ONCE IVPB Last administered on 07/03/24at 15:14; Start 07/03/24 at 15:30; Stop 07/03/24 at 16:29; Status DC Cefepime HCl 2 gm Q12H IVPB Last administered on 07/05/24at 21:06; Start 07/03/24 at 18:00; Stop 07/06/24 at 19:47; Status DC Budesonide 0.5 mg BIDRESP IH; Start 07/03/24 at 15:30; Stop 07/03/24 at 16:21; Status DC Albuterol 1 udvial [id number] IH; Start 07/03/24 at 15:30; Stop 07/03/24 at 16:21; Status DC Pantoprazole Sodium 40 mg Q24H IVP Last administered on 07/06/24at 17:57; Start 07/03/24 at 16:00; Stop 08/02/24 at 15:59 Acetaminophen 650 mg Q6H PRN PO; Start 07/03/24 at 16:00; Stop 08/02/24 at 15:59 Ondansetron HCl 4 mg Q6H PRN IVP Last administered on 07/04/24at 19:46; Start 07/03/24 at 16:00; Stop 08/02/24 at 15:59 Lactated Ringer's 1,000 ml @ 75 mls/hr [id number] IV Last administered on 07/06/24at 10:40; Start 07/03/24 at 16:00; Stop 08/02/24 at 15:59 Thiamine HCl 100 mg Q24H IVP Last administered on 07/06/24at 17:57; Start 07/03/24 at 16:00; Stop 08/02/24 at 15:59 Multivitamins Therapeutic 1 tab DAILY PO Last administered on 07/06/24at 10:56; Start 07/04/24 at 09:00; Stop 08/03/24 at 08:59 Budesonide 0.5 mg BIDRESP IH Last administered on 07/07/24at 07:19; Start 07/03/24 at 18:00; Stop 08/02/24 at 17:59 Albuterol 1 udvial [id number] IH Last administered on 07/07/24at 07:20; Start 07/03/24 at 18:00; Stop 08/02/24 at 17:59 Doxycycline Hyclate 250 ml @ 125 mls/hr Q12H IV Last administered on 07/07/24at 04:37; Start 07/03/24 at 16:30; Stop 07/13/24 at 16:29 Lactulose 30 gm BID PO; Start 07/03/24 at 21:00; Stop 07/03/24 at 19:11; Status DC Sodium Chloride 4 ml STK-MED ONCE IH Last administered on 07/03/24at 20:07; Start 07/03/24 at 18:24; Stop 07/03/24 at 18:24; Status DC Lactulose 30 gm TID PO Last administered on 07/04/24at 17:52; Start 07/03/24 at 21:00; Stop 07/05/24 at 09:49; Status DC Potassium Chloride 100 ml @ 100 mls/hr AD PRN IV; Start 07/03/24 at 20:30; Stop 08/02/24 at 20:29 Potassium Chloride 20 meq AD PRN PO; Start 07/03/24 at 20:30; Stop 08/02/24 at 20:29 Potassium Chloride 20 meq AD PRN PO; Start 07/03/24 at 20:30; Stop 08/02/24 at 20:29 Magnesium Sulfate 50 ml @ 0 mls/hr PROTOCOL IV Last administered on 07/04/24at 09:54; Start 07/03/24 at 20:30; Stop 08/02/24 at 20:29 Guaifenesin/ Dextromethorphan 10 ml Q6H PRN PO Last administered on 07/05/24at 16:28; Start 07/03/24 at 23:00; Stop 08/02/24 at 22:59 Sodium Chloride 4 ml STK-MED ONCE IH Last administered on 07/03/24at 23:29; Start 07/03/24 at 22:59; Stop 07/03/24 at 23:00; Status DC Sodium Chloride 4 ml STK-MED ONCE IH Last administered on 07/05/24at 23:19; Start 07/04/24 at 06:06; Stop 07/04/24 at 06:06; Status DC Folic Acid 1 mg DAILY PO Last administered on 07/06/24at 10:56; Start 07/04/24 at 14:00; Stop 08/03/24 at 13:59 Vitamin B Complex 1,000 mcg AM IM Last administered on 07/06/24at 11:02; Start 07/04/24 at 14:00; Stop 07/10/24 at 12:00 Lactulose 30 gm DAILY PO Last administered on 07/06/24at 10:57; Start 07/06/24 at 09:00; Stop 08/02/24 at 20:59 Fluconazole/ Sodium Chloride 200 mg Q24H IVPB Last administered on 07/06/24at 14:20; Start 07/06/24 at 12:30; Stop 08/05/24 at 12:29 Cefepime HCl 2 gm Q12H9 IVPB Last administered on 07/06/24at 20:52; Start 07/06/24 at 21:00; Stop 07/16/24 at 20:59 Dicyclomine HCl 20 mg QID PO; Start 07/07/24 at 09:00; Stop 08/06/24 at 08:59 Fluticasone Propionate 1 SPRAY EN BID BID EN; Start 07/07/24 at 09:00; Stop 08/06/24 at 08:59 Lactulose 10 gm DAILY PO; Start 07/07/24 at 09:00; Stop 08/06/24 at 08:59 Neomycin/ Polymyxin/ Bacitracin 1 appl HS TP; Start 07/07/24 at 21:00; Stop 08/06 at 20:59 Miscellaneous Medication 1 cap DAILY PO; Start 07/07/24 at 09:00; Stop 07/07/24 at 07:25; Status DC Miscellaneous Medication 17 gm DAILY PO; Start 07/07/24 at 09:00; Stop 08/06/24 at 08:59; Status JOHNNA REDDING MD July 07, 2024 07:28
[2024-07-07] MEDS ORDERED: NON-FORMULARY MEDICATION 1 EACH (Omeprazole 1 CAP) PO SCH (09:00)
[2024-07-07] MEDS ORDERED: LACTULOSE 20 GM/30 ML UDCUP PO SCH (09:00)
[2024-07-07] MEDS: polyETHYLene GLYCol 3350 17 GM POWD.PACK PO SCH (09:00)
[2024-07-07] MEDS: fluTICasone proPIONate 50MCG/SPRAY 16 GM BOTTLE EN SCH (09:19)
[2024-07-07] MEDS: DICYCLOMINE HCL 20 MG TAB PO SCH (09:20)
--- NOTE | 2024-07-07 14:36 | PN ---
[facility] PROGRESS NOTE Date Patient Seen: July 07, 2024 Time of Visit: 14:32 Supervising Physician: [Dr. Devries] Primary Care Physician: [[facility]] Outpatient Specialists: [ ] Inpatient Consults: [[facility]] PROBLEM LIST: Atypical community-acquired pneumonia due to Mycoplasma pneumoniae Pancytopenia, in setting of pneumonia and liver cirrhosis Right upper extremity numbness, non-acute CT head Liver cirrhosis with portal hypertension Obesity Hypertension Debility Plan: Start z-pack upon discharge Continue fluconazole 200mg daily X 2 weeks Cough medication prn Follow oncology recommendation, follow up outpatient as needed Cleared for discharge from pulmonary standpoint DCPper primary INTERVAL HISTORY: [Patient is evaluated at bedside. States she continues with cough, denies phlegm but states is thick mucus secretion. Her lungs are clear to auscultation without wheezing, rhonchi or congestion. Her sputum culture shows gm positive cocci, pending final. States she had about six episodes of loose bowel movements last night, she attributed to her lactulose which she states takes daily at home. Has been receiving it scheduled here at 3 times daily. She continues saturating well on room air, no acute respiratory distress. She is pending labs to evaluate for bone marrow suppression with Oncology.] 07/06 patient is evaluated at bedside. She continues with productive cough, currently saturating well on room air. Her WBCs are decreased, oncology recommendations noted and appreciated. Her sputum cultures growing Lexi, we will initiate treatment and immunocompromise patient. Continues on IV antibiotics for treatment of mycoplasma pneumoniae. Her ammonia levels are improved. 07/07 patient is evaluated at bedside. Her cough and congestion is much improve d. Continues on IV antibiotics for mycoplasma pneumoniae and fluconazole for Lexi. Continues with pancytopenia, managed by Oncology. Patient is cleared for discharge from pulmonary standpoint to continue outpatient oral antibiotics and fluconazole. REVIEW OF SYSTEMS: 12 point ROS reviewed with patient. Pertinent positives mentioned above. Oth erwise negative. PHYSICAL EXAM: GENERAL: alert, weak, awake oriented x 3 HEENT: EOMI, Sclera non icteric, moist mucosa NECK: Supple, no JVD, trachea midline LUNGS: Clear breath sounds bilaterally. No wheezes HEART: Regular rate and rhythm. Normal S1 and S2, without murmurs ABD: Abdomen soft, nontender. Bowel sounds present EXT: No clubbing cyanosis or edema NEURO: Alert and oriented to person, follows commands Vital Signs (last 8hr) Date Time Temp Pulse Resp B/P (MAP) Pulse Ox O2 Delivery O2 Flow Rate FiO2 07/07/24 12:00 98.4 75 19 163/70 95 Room Air 07/07/24 11:25 70 19 07/07/24 08:00 98 Room Air* 0 21 07/07/24 08:00 98.2 73 18 146/67 98 Room Air 07/07/24 07:25 71 18 N/A Room Air 21 07/07/24 07:20 71 18 LABS: Chemistry Labs: Test 07/06/24 05:00 Range/Units Sodium Level 141 136-145 mmol/L Potassium Level 4.0 3.5-5.1 mmol/L Chloride Level 110 101-111 mmol/L Carbon Dioxide Level 27 21-32 mmol/L Blood Urea Nitrogen 8 7-18 mg/dL Creatinine 0.8 0.5-1.0 mg/dL Glomerular Filtration Rate Calc 81 >90 mL/min Random Glucose 96 70-105 mg/dL Total Calcium 8.4 L 8.5-10.1 mg/dL DIAGNOSTICS / RADIOLOGY RESULTS: [ ] PLAN NEURO: Minimize central acting medications as possible. Maintain fall precautions, adequate lighting during the day PULMONARY: Supplemental 02 as needed. Maintain aspiration precautions at all times CARDIOVASCULAR: Follow hemodynamics. Vital signs per facility protocol GI & NUTRITION: Continue with nutritional support. Continue stool softeners and laxatives as needed. KIDNEYS & ELECTROLYTES: Strict monitoring of intake, output and overall fluid balance. Avoid nephrotoxic medications to the extent possible. Medications to be dosed according to renal function. Monitor electrolytes and replace as needed ENDOCRINE: Maintain blood glucose between 100-180 at all times. Hypoglycemia protocol in place INFECTIOUS DISEASE: Trend temperature, WBC and procalcitonin level Follow cultures, deescalate antibiotics as soon as possible. Panculture if new onset fever ONCOLOGY/HEMATOLOGY/COAGULATION: Monitor for s/s of bleeding Monitor hemoglobin, coagulation studies as needed SKIN: Pressure ulcer prevention per facility protocol Specialty mattress ORTHO/REHAB: Continue PT/OT Prophylaxis: Continue GI and DVT prophylaxis Code Status: Full Resuscitation Disposition: TBD Other: Total patient care time exceeds 35 minutes excluding all procedures. NEGRA AGUSTIN July 07, 2024 14:36
--- NOTE | 2024-07-07 16:42 | PN ---
[facility] PROGRESS NOTE Date of Service: July 07, 2024 Time of Service: 16:[address] Hendrix SUBJECTIVE: [69-year-old female admitted for shortness of breaths, fever and productive cough. Chest x-ray showed minimal pulmonary infiltrates, patient is currently on IV cefepime and doxycycline. Patient reported week and lethargic. Patient has history of liver cirrhosis, patient is per having persistent leukopenia, slowly downtrending. Patient has history of liver cirrhosis. At this point, hematology has been consulted. She will continue with current management. Still short of breath using accessory muscles. But currently on room air.] 07/05/24 patient was seen and examined and case discussed with the RN. Continue IV cefepime and doxycycline. Continue to monitor blood counts. 07/06/24 patient was seen and examined. Case discussed with the RN. He was feeling slightly better has some cough. Continue IV cefepime and doxycycline 07/07/24 patient was seen by nurse practitioner physician during rounding in room 315. Patient was seen by oncologist and patient has a normocytic normochromic anemia. Patient was recommended to be started on folic acid 1 mg p.o. daily and vitamin B12 1000 mcg p.o. daily. 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 orders for SPEP, UPEP and free light chain. If there is monoclonal protein we will do a bone marrow biopsy. As per russian language instructor patient is cleared to be discharged home on oral antibiotics and fluconazole. Once patient will be cleared by oncologist patient could be discharged fluconazole for two weeks and azithromycin 500 x 5 days. Urine culture negative. Sputum culture is growing Lexi. We will continue to monitor patient in the meantime. A.m. labs. REVIEW OF SYSTEMS CONSTITUTIONAL: Denies fevers, chills, or night sweats. No unintentional weight loss reported. NEUROLOGICAL: Denies headache, amaurosis fugax, motor weakness, sensory deficit, vertigo/spinning sensation, gait abnormalities, or tremors. ENT: No hearing loss, otalgia, otorrhea, rhinitis, rhinorrhea, hoarseness, or sore throat. CARDIOVASCULAR: Denies any exertional angina, dyspnea on exertion, orthopnea, paroxysmal nocturnal dyspnea, palpitations, life-threatening arrhythmias, claudication. PULMONARY: Shortness of breath improved , productive cough with greenish sputum SLEEP: Denies morning headaches, daytime somnolence or napping. Denies di fficulty falling asleep, staying asleep, waking from sleep. Denies knowledge of snoring. GASTROINTESTINAL: Reports having history of liver cirrhosis GENITOURINARY: Denies frequency, urgency, nocturia, hematuria or incontinence (Storage/Irritative symptoms.) Low urinary stream, straining to void, urinary intermittency or hesitancy, splitting of the voiding stream, terminal dribbling. ENDOCRINOLOGIC: Denies polyuria, polydipsia, polyphagia or heat/cold intolerances. HEMATOLOGIC: Denies thrombophilia/previous clots, or coagulopathy/bleeding disorders. ONCOLOGIC: Denies personal history of malignancy. DERMATOLOGIC: Denies rashes or pruritus. PSYCHIATRIC: Denies any suicidal or homicidal ideation. Denies hallucinations. PHYSICAL EXAM GENERAL APPEARANCE: The patient is awake, alert, and oriented, in no acute cardiopulmonary distress. NEUROLOGICAL: Cranial nerves II-XII grossly intact. Motor is 5/5 in bilateral upper and lower extremities proximal to distal. No sensory deficits. HEENT: Face is symmetric. Pupils are equal and reactive. Extraocular movements are intact. NECK: Supple. No JVD. No thyromegaly. No submental, submandibular, pre- /postauricular, occipital or supraclavicular lymphadenopathy. CHEST: Normal chest expansion. No Telemetry. LUNGS: Minimal crackles noted at bilateral lung bases with rhonchorous breath sounds CARDIOVASCULAR: Regular. S1 and S2 normal. No appreciable rubs, murmurs or gallops. ABDOMEN: Soft, nontender, and nondistended. There is no rebound, voluntary guarding, or rigidity. : Deferred. No Wagoner. EXTREMITIES: Non-edematous and not cyanotic. No clubbing. Good capillary refill. SKIN: No skin breakdown. Vital Signs (last 8hr) Date Time Temp Pulse Resp B/P (MAP) Pulse Ox O2 Delivery O2 Flow Rate FiO2 07/07/24 15:08 70 18 N/A Room Air 21 07/07/24 12:00 98.4 75 19 163/70 95 Room Air 07/07/24 11:25 70 19 LABS: Laboratory: Test 07/06/24 05:00 Range/Units Sodium Level 141 136-145 mmol/L Potassium Level 4.0 3.5-5.1 mmol/L Chloride Level 110 101-111 mmol/L Carbon Dioxide Level 27 21-32 mmol/L Blood Urea Nitrogen 8 7-18 mg/dL Creatinine 0.8 0.5-1.0 mg/dL Glomerular Filtration Rate Calc 81 >90 mL/min Random Glucose 96 70-105 mg/dL Total Calcium 8.4 L 8.5-10.1 mg/dL Current Medications Medications (Trade) Dose Ordered Sig/Taylor Route PRN Reason Start Time Stop Time Status Last Admin Dose Admin Acetaminophen (TYLenol 325MG TAB) 650 mg Q6H PRN PO MILD PAIN (1-3) 07/03/24 16:00 08/02/24 15:59 Albuterol (DUOneb) 1 udvial [id number] IH 07/03/24 15:30 07/03/24 16:21 DC Albuterol (DUOneb) 1 udvial [id number] IH 07/03/24 18:00 08/02/24 17:59 07/07/24 11:26 1 UDVIAL Budesonide (Pulmicort 0.5 Mg/2ml) 0.5 mg BIDRESP IH 07/03/24 15:30 07/03/24 16:21 DC Budesonide (Pulmicort 0.5 Mg/2ml) 0.5 mg BIDRESP IH 07/03/24 18:00 08/02/24 17:59 07/07/24 07:19 0.5 MG Cefepime HCl (MAXipime 2 gm vial) 2 gm Q12H IVPB 07/03/24 18:00 07/06/24 19:47 DC 07/05/24 21:06 2 GM Cefepime HCl (MAXipime 2 gm vial) 2 gm Q12H9 IVPB 07/06/24 21:00 07/16/24 20:59 07/07/24 09:19 2 GM Dicyclomine HCl (Bentyl 20mg Tab) 20 mg QID PO 07/07/24 09:00 08/06/24 08:59 07/07/24 12:20 20 MG Doxycycline Hyclate 250 ml @ 125 mls/hr Q12H IV 07/03/24 16:30 07/13/24 16:29 07/07/24 15:38 125 MLS/HR Fluconazole/ Sodium Chloride (DiFLUCan 200 MG/ NS 100 ML) 200 mg Q24H IVPB 07/06/24 12:30 08/05/24 12:29 07/07/24 12:19 200 MG Fluticasone Propionate (FLOnase 50 mcg/ spray 16g bottle) 1 SPRAY EN BID BID EN 07/07/24 09:00 08/06/24 08:59 07/07/24 09:19 2 SPRAYS Folic Acid (FOLic ACID 1 MG TABLET) 1 mg DAILY PO 07/04/24 14:00 08/03/24 13:59 07/07/24 09:20 1 MG Guaifenesin/ Dextromethorphan (RobiTUSSin DM 200/20MG 10ML) 10 ml Q6H PRN PO COUGH 07/03/24 23:00 08/02/24 22:59 07/05/24 16:28 10 ML Lactated Ringer's 1,000 ml @ 75 mls/hr [id number] IV 07/03/24 16:00 08/02/24 15:59 07/06/24 10:40 75 MLS/HR Lactulose (Constulose 20gm/ 30ml Udcup) 10 gm DAILY PO 07/07/24 09:00 07/07/24 07:56 DC Lactulose (Constulose 20gm/ 30ml Udcup) 30 gm BID PO 07/03/24 21:00 07/03/24 19:11 DC Lactulose (Constulose 20gm/ 30ml Udcup) 30 gm DAILY PO 07/06/24 09:00 08/02/24 20:59 07/07/24 09:25 30 GM Lactulose (Constulose 20gm/ 30ml Udcup) 30 gm TID PO 07/03/24 21:00 07/05/24 09:49 DC 07/04/24 17:52 30 GM Magnesium Sulfate 50 ml @ 0 mls/hr PROTOCOL IV 07/03/24 20:30 08/02/24 20:29 07/04/24 09:54 25 MLS/HR Miscellaneous Medication (Omeprazole ) 1 cap DAILY PO 07/07/24 09:00 07/07/24 07:25 DC Multivitamins Therapeutic (Multivitamin Tablet) 1 tab DAILY PO 07/04/24 09:00 08/03/24 08:59 07/07/24 09:25 1 TAB Neomycin/ Polymyxin/ Bacitracin (Triple Antibiotic Ointment) 1 appl HS TP 07/07/24 21:00 08/06/24 20:59 Ondansetron HCl (zoFRAN 4MG INJ) 4 mg Q6H PRN IVP NAUSEA/VOMITING 07/03/24 16:00 08/02/24 15:59 07/04/24 19:46 4 MG Pantoprazole Sodium (PROTonix 40MG INJ) 40 mg Q24H IVP 07/03/24 16:00 08/02/24 15:59 07/07/24 15:38 40 MG Polyethylene Glycol (MIRalax 3350 17 GM POWD.PACK) 17 gm DAILY PO 07/07/24 09:00 08/06/24 08:59 Potassium Chloride 100 ml @ 100 mls/hr AD PRN IV POTASSIUM PROTOCOL 07/03/24 20:30 08/02/24 20:29 Potassium Chloride (K-Dur/Klor-Con 20meq) 20 meq AD PRN PO POTASSIUM PROTOCOL 07/03/24 20:30 08/02/24 20:29 Potassium Chloride (KCl 10% Elixir 20meq/15ml) 20 meq AD PRN PO POTASSIUM PROTOCOL 07/03/24 20:30 08/02/24 20:29 Thiamine HCl (Vitamin B-1) 100 mg Q24H IVP 07/03/24 16:00 08/02/24 15:59 07/07/24 15:38 100 MG Vitamin B Complex (Vitamin B-12) 1,000 mcg AM IM 07/04/24 14:00 07/10/24 12:00 07/07/24 09:25 1,000 MCG DIAGNOSTICS / RADIOLOGY: [ ] ASSESSMENT: Developing community-acquired pneumonia, POA Sputum growing Lexi Neutropenia Leukopenia, POA Right upper extremity numbness x3 days, POA Underlying history of cirrhosis of the liver, POA Moderate thrombocytopenia secondary to underlying cirrhosis w/portal HTN, POA Obesity, POA Hypertension, POA Debility, POA PLAN: Patient will be admitted to medical-surgical floor under telemetry monitoring Continue with current IV antibiotics with cefepime/doxycycline, patient reports having productive cough in the setting of leukopenia and underlying cirrhosis, chest x-ray showed concerns for bilateral infiltrates CT chest without contrast reviewed Sputum culture growing Lexi Patient has mild wheezing on examination, we will start patient on scheduled nebulizers and albuterol As per russian language instructor they signed off patient is cleared to be discharged home on fluconazole and oral antibiotics Lactulose changed from 30 mg to 20 mg b.i.d. With regards to numbness involving the right upper extremity, we will follow up CT head without contrast, we will request associated tele neurology evaluation, we will see if Neurology requests MRI this admission for further workup this admission, pt also complaint of fhaving right shoulder pain, x-ray chest reviewed We will keep patient on IV lactated Ringer's 75 mL/hour times 24 hours Home medications will be reconciled and updated once available All labs will be repeated in the morning ATTESTATION BY PHYSICIAN I have seen and examined the patient. I reviewed the documentation, medical decision making, and treatment plan as noted by the mid-level provider above. I agree with the findings and plan of care. ROMELIA Abarca MD, APRN July 07, 2024 16:42
[2024-07-07] MEDS: NEOMY SULF/BACITRA/POLYMYXIN B 1 EACH PACKET TP SCH (21:03)
[2024-07-07] MEDS: LACTULOSE 20 GM/30 ML UDCUP PO SCH (21:03)
[2024-07-08] VITALS (7 sets, daily range): BP systolic 139–152; BP diastolic 63–69; PULSE 74–78; RESP 18–20; TEMP 97.6–98.1; O2SAT 98
[2024-07-08 06:02] LABS: BASOPHILS # (AUTO) 0.01 K/uL (0.00-0.20); BASOPHILS % (AUTO) 0.6 % (0.0-5.0); EOSINOPHILS # (AUTO) 0.05 K/uL (0.00-0.70); EOSINOPHILS % (AUTO) 3.1 % (0.0-8.0); HEMATOCRIT 30.5 % (36-48); IMMATURE GRANULOCYTE ABSOLUTE 0.01 K/uL (0-1); LYMPHOCYTES # (AUTO) 0.4 K/uL (1.0-4.8); LYMPHOCYTES % (AUTO) 22.1 % (21.0-51.0); MEAN CORPUSCULAR HGB CONC 32.8 g/dL (32.0-36.0); MEAN CORPUSCULAR VOLUME 88.4 fL (79-99); MONOCYTES # (AUTO) 0.1 K/uL (0.1-1.0); MONOCYTES % (AUTO) 8.6 % (3.0-13.0); NEUTROPHILS # (AUTO) 1.1 K/uL (1.8-7.7); PLATELET COUNT (AUTO) 30 K/uL (130-400); RED BLOOD CELL COUNT(AUTO) 3.45 MIL/uL (4.00-5.50); RED CELL DISTRIBUTION WIDTH 14.1 % (11.0-15.5); WHITE BLOOD COUNT (AUTO) 1.6 K/uL (4.8-10.8)
[2024-07-08 06:32] LABS: ALBUMIN 2.7 g/dL (3.5-5.0); BILIRUBIN,TOTAL 0.6 mg/dL (0.2-1.0); CREATININE 0.9 mg/dL (0.5-1.0); MAGNESIUM 1.6 mg/dL (1.80-2.40); POTASSIUM 3.7 mmol/L (3.5-5.1); TOTAL PROTEIN, SERUM 6.6 g/dL (6.0-8.3)
--- NOTE | 2024-07-08 08:44 | PN ---
A 69-year-old obese female with a past medical history of liver cirrhosis (likely secondary to VIDES), hypertension, and no significant alcohol use, presented to the emergency department on July 03, 2024, with progressive shortness of breath, pleuritic chest pain, and productive cough with green sputum for the past 3 days. She also reports low-grade fevers at home, worsening dyspnea with ambulation, and right upper extremity numbness without associated weakness. No prior history of stroke, seizures, or TIA. She denies melena, hematemesis, or hematochezia. She has a known diagnosis of cirrhosis but is unsure of the etiology. She follows outpatient GI and takes lactulose as maintenance. On arrival, she was afebrile and hemodynamically stable. Laboratory evaluation revealed pancytopenia with WBC 1.5, Hb 10.0, Plt 35K, ANC 0.9. Imaging revealed bilateral pulmonary infiltrates concerning for atypical pneumonia. Respiratory panel was positive for Mycoplasma pneumoniae IgM. She was admitted to the medical floor under telemetry monitoring for further evaluation and management of atypical community-acquired pneumonia in the setting of chronic liver disease and pancytopenia. White blood count continued to be 1.6K. Hemoglobin 30K but no bleeding. PHYSICAL EXAM VITALS: GENERAL: ALERT, ORIENTED, APPEARS-NO ACUTE DISTRESS EYES: SCLERAE ANICTERIC, PUPILS EQUAL/REACTIVE, EXTRAOCULAR MUSCLES INTCT ENT/NECK: ORAL MUCOSA W/O LESIONS, OROPHARYNX IS CLEAR, NECK SUPPLE W/O MASSES RESPIRATORY: No LUNGS CLEAR-AUSC/PERCUS ( Minimal crackles noted at bilateral lung bases with rhonchorous breath sounds) CARDIOVASCULAR: REGULAR RATE, REGULAR RHYTHM GASTROINTESTINAL: No ABDOMEN IS SOFT, No TENDER, No DISTENDED; H EPATOSPLENOMEGALY; No BOWEL SOUNDS PRESENT, No PALPABLE MASSES HEMATOLOGY/LYMPHATIC: No CERVICAL ADENOPATHY, No SUPRACLAVICULR ADENOPATHY, No AXILLARY ADENOPATHY, No INGUINAL ADENOPATHY MUSCULOSKELETAL: No CYANOSIS-EXTREMETIES, No CLUBBING, No EDEMA SKIN/BREASTS: No MASSES, No RASH, No HIVES NEUROLOGICAL: GROSSLY INTACT PSYCHOLOGICAL: MINI MENTAL ASSMT INTACT Assessment 1. Neutropenia. White blood count 1.6K 2. Anemia. The anemia is 10.0 g/deciliter 3. Thrombocytopenia. Platelet count 30K 4. Change mental status with elevated ammonia 5. Sepsis with the patient possibly have pneumonia receiving antibiotic treatment. Patient feeling better. Plan 1. This patient actually could benefit from Granix 300 mcg to be given subcu today. 2. Continue on folic acid 1 mg p.o. daily and vitamin B12 1000 mcg p.o. daily. 3. 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 We will follow-up with SPEP, UPEP and free light chain result. If there is monoclonal protein we will do a bone marrow biopsy. 4. No need for blood product transfusion 5. Continue antibiotic treatment 6. No need for bone marrow biopsy 7. If this patient stable she could be discharged to follow-up with us as outpatient in the next 2 weeks. Vitals/Labs Vital Signs Date Time Temp Pulse Resp B/P (MAP) Pulse Ox O2 Delivery O2 Flow Rate FiO2 07/08/24 07:11 74 18 07/08/24 07:10 N/A Room Air 21 07/08/24 04:00 97.5 139/63 96 07/07/24 20:00 0 Laboratory Tests 07/08/24 05:44 Medications Current Medications Ceftriaxone Sodium 1 gm ONCE ONCE IVPB Last administered on 07/03/24at 15:13; Start 07/03/24 at 15:00; Stop 07/03/24 at 15:01; Status DC Azithromycin 250 ml @ 250 mls/hr ONCE ONCE IVPB Last administered on 07/03/24at 15:14; Start 07/03/24 at 15:30; Stop 07/03/24 at 16:29; Status DC Cefepime HCl 2 gm Q12H IVPB Last administered on 07/05/24at 21:06; Start 07/03/24 at 18:00; Stop 07/06/24 at 19:47; Status DC Budesonide 0.5 mg BIDRESP IH; Start 07/03/24 at 15:30; Stop 07/03/24 at 16:21; Status DC Albuterol 1 udvial [id number] IH; Start 07/03/24 at 15:30; Stop 07/03/24 at 16:21; Status DC Pantoprazole Sodium 40 mg Q24H IVP Last administered on 07/07/24at 15:38; Start 07/03/24 at 16:00; Stop 08/02/24 at 15:59 Acetaminophen 650 mg Q6H PRN PO; Start 07/03/24 at 16:00; Stop 08/02/24 at 15:59 Ondansetron HCl 4 mg Q6H PRN IVP Last administered on 07/04/24at 19:46; Start 07/03/24 at 16:00; Stop 08/02/24 at 15:59 Lactated Ringer's 1,000 ml @ 75 mls/hr [id number] IV Last administered on 07/06/24at 10:40; Start 07/03/24 at 16:00; Stop 07/07/24 at 20:00; Status DC Thiamine HCl 100 mg Q24H IVP Last administered on 07/07/24at 15:38; Start 07/03/24 at 16:00; Stop 08/02/24 at 15:59 Multivitamins Therapeutic 1 tab DAILY PO Last administered on 07/07/24at 09:25; Start 07/04/24 at 09:00; Stop 08/03/24 at 08:59 Budesonide 0.5 mg BIDRESP IH Last administered on 07/08/24at 07:07; Start 07/03/24 at 18:00; Stop 08/02/24 at 17:59 Albuterol 1 udvial [id number] IH Last administered on 07/08/24at 07:07; Start 07/03/24 at 18:00; Stop 08/02/24 at 17:59 Doxycycline Hyclate 250 ml @ 125 mls/hr Q12H IV Last administered on 07/08/24at 04:18; Start 07/03/24 at 16:30; Stop 07/13/24 at 16:29 Lactulose 30 gm BID PO; Start 07/03/24 at 21:00; Stop 07/03/24 at 19:11; Status DC Sodium Chloride 4 ml STK-MED ONCE IH Last administered on 07/03/24at 20:07; Start 07/03/24 at 18:24; Stop 07/03/24 at 18:24; Status DC Lactulose 30 gm TID PO Last administered on 07/04/24at 17:52; Start 07/03/24 at 21:00; Stop 07/05/24 at 09:49; Status DC Potassium Chloride 100 ml @ 100 mls/hr AD PRN IV; Start 07/03/24 at 20:30; Stop 08/02/24 at 20:29 Potassium Chloride 20 meq AD PRN PO; Start 07/03/24 at 20:30; Stop 08/02/24 at 20:29 Potassium Chloride 20 meq AD PRN PO; Start 07/03/24 at 20:30; Stop 08/02/24 at 20:29 Magnesium Sulfate 50 ml @ 0 mls/hr PROTOCOL IV Last administered on 07/04/24at 09:54; Start 07/03/24 at 20:30; Stop 08/02/24 at 20:29 Guaifenesin/ Dextromethorphan 10 ml Q6H PRN PO Last administered on 07/05/24at 16:28; Start 07/03/24 at 23:00; Stop 08/02/24 at 22:59 Sodium Chloride 4 ml STK-MED ONCE IH Last administered on 07/03/24at 23:29; Start 07/03/24 at 22:59; Stop 07/03/24 at 23:00; Status DC Sodium Chloride 4 ml STK-MED ONCE IH Last administered on 07/05/24at 23:19; Start 07/04/24 at 06:06; Stop 07/04/24 at 06:06; Status DC Folic Acid 1 mg DAILY PO Last administered on 07/07/24at 09:20; Start 07/04/24 at 14:00; Stop 08/03/24 at 13:59 Vitamin B Complex 1,000 mcg AM IM Last administered on 07/07/24at 09:25; Start 07/04/24 at 14:00; Stop 07/10/24 at 12:00 Lactulose 30 gm DAILY PO Last administered on 07/07/24at 09:25; Start 07/06/24 at 09:00; Stop 07/07/24 at 16:27; Status DC Fluconazole/ Sodium Chloride 200 mg Q24H IVPB Last administered on 07/07/24at 12:19; Start 07/06/24 at 12:30; Stop 08/05/24 at 12:29 Cefepime HCl 2 gm Q12H9 IVPB Last administered on 07/07/24at 21:03; Start 07/06/24 at 21:00; Stop 07/16/24 at 20:59 Dicyclomine HCl 20 mg QID PO Last administered on 07/07/24at 21:03; Start 07/07/24 at 09:00; Stop 08/06/24 at 08:59 Fluticasone Propionate 1 SPRAY EN BID BID EN Last administered on 07/07/24at 21:06; Start 07/07/24 at 09:00; Stop 08/06/24 at 08:59 Lactulose 10 gm DAILY PO; Start 07/07/24 at 09:00; Stop 07/07/24 at 07:56; Status DC Neomycin/ Polymyxin/ Bacitracin 1 appl HS TP Last administered on 07/07/24at 21:03; Start 07/07/24 at 21:00; Stop 08/06/24 at 20:59 Miscellaneous Medication 1 cap DAILY PO; Start 07/07/24 at 09:00; Stop 07/07/24 at 07:25; Status DC Polyethylene Glycol 17 gm DAILY PO; Start 07/07/24 at 09:00; Stop 08/06/24 at 08:59 Lactulose 20 gm BID PO Last administered on 07/07/24at 21:03; Start 07/07/24 at 21:00; Stop 08/06/24 at 20:59 JOHNNA TEIXEIRA MD July 08, 2024 08:44
[2024-07-08] MEDS: TBO-FILGRASTIM 300 MCG/0.5 ML ML SQ ONE (10:53)
[2024-07-08] MEDS ORDERED: AZIT500T4 PO (11:31)
[2024-07-08] MEDS ORDERED: FOLI1 PO (11:31)
[2024-07-08] MEDS ORDERED: MVIT PO (11:31)
[2024-07-08] MEDS ORDERED: FLUC200T96 PO (11:32)
--- NOTE | 2024-07-08 11:41 | DS ---
Discharge Summary Hospital Course Summary: DATE OF ADMISSION:[07/03/2024] DATE OF DISCHARGE:[07/08/2024] DISPOSITION:[Home] CONDITION:[Medically stable] CONSULTANTS:[Oncologist, breaker unit assembler] FOLLOW UP APPOINTMENTS:[PCP 2 to 3 days. Summons Server within one week. Oncologist within two weeks] PROCEDURES:[No procedures] IMAGING: report attached to summary MICROBIOLOGY: report attached to summary ACTIVITY:[Independent] HOME MEDICATIONS: see [facility] NEW MEDICATIONS:[Azithromycin 500 mg p.o. daily x5 days. Fluconazole 200 mg p.o. daily times 14 days. Folic acid daily 1 mg p.o. daily, multivitamin p.o.] EMERGENCY INSTRUCTIONS: The patient was instructed to present to the nearest Emergency departmentr or call 911 once their symptoms will return or worsen Draughtsman(s): Patient is 69 years old female who came to emergency department with a complaint of shortness of breaths and productive cough. Patient was also complaining of right upper extremity numbness without associated weakness. Patient does have a known diagnosis of cirrhosis but is unknown of etiology. Patient follow ups outpatient GI and takes lactulose as a maintenance. Throughout the hospitalization chest x-ray was ordered and showed pneumonia. Chest CT showed fibrotic changes. Head CT was negative ultrasound abdomen showed enlarged spleen. s/p cholecystectomy. Shoulder x-ray negative. Respiratory panel was positive for mycoplasma pneumoniae IgM. Patient was admitted to the telemetry floor for further evaluation management of community-acquired pneumonia in the setting of chronic liver disease and pancytopenia. As per oncologist peripheral blood smear showed red blood cells to be normocytic normochromic. Patient was started on folic acid 1 mg p.o. daily and vitamin B12 1000 mcg p.o. daily. It was also found that patient was rouleaux phenomena and SPEP, UPEP and free light chain was ordered there was no monoclonal protein so bone marrow biopsy was not requested. Patient was cleared by oncologist to be discharged home follow up outpatient in two weeks. Patient was also seen by breaker unit assembler patient throughout the hospitalization was put on fluconazole for Lexi as per sputum culture. Urine culture was negative. Today patient was cleared by both consultants. Follow up with PCP in 2 to 3 days. Follow up with oncologist as stated follow-up with breaker unit assembler within two weeks. Patient denies any shortness of breath, chest pain, nausea, vomiting or any other discomfort. Patient will be discharged home on azithromycin 500 mg x 5 days and fluconazole 200 mg daily x2 weeks as recommended by breaker unit assembler. Assessment/Plan: ASSESSMENT: Developing community-acquired pneumonia, POA Sputum growing Lexi Neutropenia Leukopenia, POA Right upper extremity numbness x3 days, POA Underlying history of cirrhosis of the liver, POA Moderate thrombocytopenia secondary to underlying cirrhosis w/portal HTN, POA Obesity, POA Hypertension, POA Debility, POA Home Medications: Reported Medications Alendronate Sodium (Alendronate Sodium) 70 Mg Tablet, 1 TAB PO QWEEK 07/04/24 Lactulose (Enulose) 10 Gram/15 Ml Solution, 10 G PO DAILY 07/04/24 Christiano/Polymyx B Sulf/Dexameth (Maxitrol Eye Ointment) 3.5 Gm Oint, 0.25 MG OU HS 07/04/24 Ergocalciferol (Vitamin D2) (Vitamin D2) 1,250 Mcg (64834 Unit) Capsule, 1 CAP PO QWEEK 07/04/24 Dicyclomine HCl (Bentyl) 20 Mg Tab, 1 TAB PO QID for 30 Days 07/04/24 Polyethylene Glycol 3350 ([id number]) 17 Gram/Dose Powder, 17 GM PO DAILY 07/04/24 Fluticasone Propionate (Flonase Nasal Robert Lee) 50 Mcg/Actuation Robert Lee, 1 INH EN BID 07/04/24 Omeprazole (Omeprazole) 40 Mg Capsule.dr, 1 CAP PO DAILY for 30 Days 07/04/24 Discontinued Reported Medications Ciprofloxacin HCl (Ciprofloxacin HCl) 500 Mg Tablet, 1 TAB PO BID for 10 Days 07/04/24 Ascorbic Acid (Vitamin C) 500 Mg Capsule, 1 CAP PO DAILY for 28 Days, #28 CAP 0 Refills 06/13/24 Acetaminophen (Tylenol) 325 Mg Tablet, 1 TAB PO Q4HPRN PRN for pain or fever for 5 Days, #30 TAB 0 Refills 06/13/24 Ondansetron HCl (Ondansetron HCl) 4 Mg Tablet, 1 TAB PO Q4HPRN PRN for nausea/vomiting for 3 Days, #18 TAB 0 Refills 06/13/24 Losartan Potassium (Losartan Potassium) 25 Mg Tablet, 1 TAB PO DAILY for 30 Days, #30 TAB 0 Refills 06/13/24 Linaclotide (Linzess) 145 Mcg Capsule, 1 CAP PO DAILY for 30 Days, #30 CAP 0 Refills 06/13/24 Lactulose (Lactulose) 10 Gram/15 Ml Solution, 30 ML PO BID for constipation, #500 ML 0 Refills 06/13/24 Fluticasone Propionate (Flonase Nasal Robert Lee) 50 Mcg/Actuation Robert Lee, 2 SPRAY NS DAILY, #16 GM 0 Refills 06/13/24 Diclofenac Sodium (Diclofenac Sodium) 1 % Gel..gram., 1 APPL TP QID for 21 Days, #100 GM 0 Refills 06/13/24 Benzonatate (Benzonatate) 200 Mg Capsule, 1 CAP PO AM PRN for cough for 7 Days, #21 CAP 0 Refills 06/13/24 Alendronate Sodium (Alendronate Sodium) 70 Mg Tablet, 1 TAB PO QWEEK for 28 Days, #4 TAB 0 Refills in the morning, at least 30 minutes before the first food, beverage, or medication of the day 06/13/24 Time spent arranging discharge: 31-60 minutes ATTESTATION BY PHYSICIAN I have seen and examined the patient. I reviewed the documentation, medical decision making, and treatment plan as noted by the mid-level provider above. I agree with the findings and plan of care. ROMELIA Abarca MD HEALTH UNDERWRITER July 08, 2024 11:41
--- NOTE | 2024-07-08 12:55 | PN ---
[facility] PROGRESS NOTE Date Patient Seen: July 08, 2024 Time of Visit: 13:55 Supervising Physician: [Dr. Devries] Primary Care Physician: [[facility]] Outpatient Specialists: [ ] Inpatient Consults: [[facility]] PROBLEM LIST: Atypical community-acquired pneumonia due to Mycoplasma pneumoniae Pancytopenia, in setting of pneumonia and liver cirrhosis Right upper extremity numbness, non-acute CT head Liver cirrhosis with portal hypertension Obesity Hypertension Debility Plan: Start z-pack upon discharge Continue fluconazole 200mg daily X 2 weeks Cough medication prn Follow oncology recommendation, follow up outpatient as needed Cleared for discharge from pulmonary standpoint DCPper primary INTERVAL HISTORY: [Patient is evaluated at bedside. States she continues with cough, denies phlegm but states is thick mucus secretion. Her lungs are clear to auscultation without wheezing, rhonchi or congestion. Her sputum culture shows gm positive cocci, pending final. States she had about six episodes of loose bowel movements last night, she attributed to her lactulose which she states takes daily at home. Has been receiving it scheduled here at 3 times daily. She continues saturating well on room air, no acute respiratory distress. She is pending labs to evaluate for bone marrow suppression with Oncology.] 07/06 patient is evaluated at bedside. She continues with productive cough, currently saturating well on room air. Her WBCs are decreased, oncology recommendations noted and appreciated. Her sputum cultures growing Lexi, we will initiate treatment and immunocompromise patient. Continues on IV antibiotics for treatment of mycoplasma pneumoniae. Her ammonia levels are improved. 07/07 patient is evaluated at bedside. Her cough and congestion is much improve d. Continues on IV antibiotics for mycoplasma pneumoniae and fluconazole for Lexi. Continues with pancytopenia, managed by Oncology. Patient is cleared for discharge from pulmonary standpoint to continue outpatient oral antibiotics and fluconazole. 07/08 Patient has persistent pancytopenia. She is pending lab testing per Oncology. Her respiratory status has improved to baseline. She will continue oral antibiotics and oral antifungal upon discharge. She is pending to discharge today per primary. Patient advised to follow up with Oncology for further evaluation of pancytopenia. REVIEW OF SYSTEMS: 12 point ROS reviewed with patient. Pertinent positives mentioned above. Otherwise negative. PHYSICAL EXAM: GENERAL: alert, weak, awake oriented x 3 HEENT: EOMI, Sclera non icteric, moist mucosa NECK: Supple, no JVD, trachea midline LUNGS: Clear breath sounds bilaterally. No wheezes HEART: Regular rate and rhythm. Normal S1 and S2, without murmurs ABD: Abdomen soft, nontender. Bowel sounds present EXT: No clubbing cyanosis or edema NEURO: Alert and oriented to person, follows commands Vital Signs (last 8hr) Date Time Temp Pulse Resp B/P (MAP) Pulse Ox O2 Delivery O2 Flow Rate FiO2 07/08/24 12:00 98.1 75 18 152/64 96 Room Air 07/08/24 11:31 78 18 07/08/24 11:29 78 18 N/A Room Air 21 07/08/24 08:00 97.9 74 18 150/69 96 Room Air 07/08/24 07:11 74 18 07/08/24 07:10 74 18 N/A Room Air 21 LABS: Hematology Labs: Test 07/08/24 05:44 Range/Units White Blood Count 1.6 L 4.8-10.8 K/uL Red Blood Count 3.45 L 4.00-5.50 MIL/uL Hemoglobin 10.0 L 12.0-16.0 g/dL Hematocrit 30.5 L 36-48 % Mean Corpuscular Volume 88.4 79-99 fL Mean Corpuscular Hemoglobin 29.0 27.0-33.0 pg Mean Corpuscular Hemoglobin Concent 32.8 32.0-36.0 g/dL Red Cell Distribution Width 14.1 11.0-15.5 % Platelet Count 30 L 130-400 K/uL Mean Platelet Volume 12.0 H 7.5-10.5 fL Immature Granulocyte % (Auto) 0.6 0-1 % Neutrophils (%) (Auto) 65.0 40.0-77.0 % Lymphocytes (%) (Auto) 22.1 21.0-51.0 % Monocytes (%) (Auto) 8.6 3.0-13.0 % Eosinophils (%) (Auto) 3.1 0.0-8.0 % Basophils (%) (Auto) 0.6 0.0-5.0 % Neutrophils # (Auto) 1.1 L 1.8-7.7 K/uL Lymphocytes # (Auto) 0.4 L 1.0-4.8 K/uL Monocytes # (Auto) 0.1 0.1-1.0 K/uL Eosinophils # (Auto) 0.05 0.00-0.70 K/uL Basophils # (Auto) 0.01 0.00-0.20 K/uL Absolute Immature Granulocyte (auto 0.01 0-1 K/uL Nucleated Red Blood Cells 0.0 0.0-0.19 % Chemistry Labs: Test 07/08/24 05:44 Range/Units Sodium Level 140 136-145 mmol/L Potassium Level 3.7 3.5-5.1 mmol/L Chloride Level 109 101-111 mmol/L Carbon Dioxide Level 24 21-32 mmol/L Blood Urea Nitrogen 9 7-18 mg/dL Creatinine 0.9 0.5-1.0 mg/dL Glomerular Filtration Rate Calc 70 >90 mL/min Random Glucose 94 70-105 mg/dL Total Calcium 8.3 L 8.5-10.1 mg/dL Magnesium Level 1.60 L 1.80-2.40 mg/dL Total Bilirubin 0.6 0.2-1.0 mg/dL Aspartate Amino Transf (AST/SGOT) 37 10-37 U/L Alanine Aminotransferase (ALT/SGPT) 26 12-78 U/L Alkaline Phosphatase 100 50-136 U/L Total Protein 6.6 6.0-8.3 g/dL Albumin 2.7 L 3.5-5.0 g/dL DIAGNOSTICS / RADIOLOGY RESULTS: [ ] PLAN NEURO: Minimize central acting medications as possible. Maintain fall precautions, adequate lighting during the day PULMONARY: Supplemental 02 as needed. Maintain aspiration precautions at all times CARDIOVASCULAR: Follow hemodynamics. Vital signs per facility protocol GI & NUTRITION: Continue with nutritional support. Continue stool softeners and laxatives as needed. KIDNEYS & ELECTROLYTES: Strict monitoring of intake, output and overall fluid balance. Avoid nephrotoxic medications to the extent possible. Medications to be dosed according to renal function. Monitor electrolytes and replace as needed ENDOCRINE: Maintain blood glucose between 100-180 at all times. Hypoglycemia protocol in place INFECTIOUS DISEASE: Trend temperature, WBC and procalcitonin level Follow cultures, deescalate antibiotics as soon as possible. Panculture if new onset fever ONCOLOGY/HEMATOLOGY/COAGULATION: Monitor for s/s of bleeding Monitor hemoglobin, coagulation studies as needed SKIN: Pressure ulcer prevention per facility protocol Specialty mattress ORTHO/REHAB: Continue PT/OT Prophylaxis: Continue GI and DVT prophylaxis Code Status: Full Resuscitation Disposition: TBD Other: Total patient care time exceeds 35 minutes excluding all procedures. NEGRA AGUSTIN July 08, 2024 12:55
[2024-07-08] MEDS: MAGNESIUM OXIDE 400 MG TABLET PO ONE (14:37)
[2024-07-08] MEDS: PoTASSium chloRIDE 20MEQ ER 20 MEQ ERTAB PO ONE (14:39)
[2024-07-09 08:11] LABS: FREE KAPPA LIGHT CHAINS,S 53.6 mg/L (3.3-19.4)
[2024-07-09 17:11] LABS: ALBUMIN (IFE & ELECTROPHOR) 3.2 g/dL (2.9-4.4); ALBUMIN/GLOBULIN RATIO (IFE) 0.9 (0.7-1.7); ALPHA-1 (IFE & PEP) 0.2 g/dL (0.0-0.4); ALPHA-2 (IFE & PEP) 0.5 g/dL (0.4-1.0); BETA (IFE & ELP) 0.8 g/dL (0.7-1.3); GAMMA GLOBULINS (IFE & ELP) 2.1 g/dL (0.4-1.8); GLOBULIN TOTAL (IFE) 3.6 g/dL (2.2-3.9); IGA (IFE) 442 mg/dL (87-352); IGG (IMMUNOFIXATION) 1988 mg/dL (586-1602); IGM (IMMUNOFIXATION) 101 mg/dL (26-217); IMMUNOFIXATION RESULT Note: (.); M-SPIKE (IEP) Not Observed g/dL (Not Observed); TOTAL PROTEIN 6.8 g/dL (6.0-8.5)
== END 2024-07-08 15:00 | disposition home or self-care (01) | DRG 871 ==
LOC: EDH 11:45 → EDHIP 15:26 → 3CH 21:50
PROVIDERS: ADMIT Internal Medicine; ATTEND Internal Medicine
DX: A41.9 Sepsis, unspecified organism (principal); J15.7 Pneumonia due to Mycoplasma pneumoniae; D61.818 Other pancytopenia; K76.6 Portal hypertension; D73.1 Hypersplenism; D69.59 Other secondary thrombocytopenia; E66.9 Obesity, unspecified; Z20.822 Contact with and (suspected) exposure to COVID-19; I10 Essential (primary) hypertension; K74.60 Unspecified cirrhosis of liver; K76.0 Fatty (change of) liver, not elsewhere classified; E11.9 Type 2 diabetes mellitus without complications; Z68.38 Body mass index [BMI] 38.0-38.9, adult; Z79.899 Other long term (current) drug therapy
CPT/HCPCS: 36415; 70450; 71045; 71250; 73030; 76700; 80048; 80053; 80076; 81001; 82105; 82140; 83521; 83615; 83735; 84145; 84484; 85025; 85027; 85651; 86140; 86334; 86738; 86850; 86900; 86901; 87071; 87205; 87426; 87449; 87804; 87880; 92610; 93005; 94640; 94664; G0378; J0456; J0692; J0696; J1450; J2405; J2470; J3411; J3420; J3475; J3490; J7120; J1447

== ENCOUNTER 2025-02-18 06:40 | Day surgery (SDC) | payer OTHER, MEDICAID ==
[~2025-02-18] VITALS: Ht 152.4 cm; Wt 93.4 kg
[~2025-02-18 06:40] MED LIST changes: +0.9%NACL 1000ML 1,000 ML IV ONE; -ACET-2247 PO; -ALEN70TA80 PO; -ASCO500C18 PO; -BENZ200C53 PO; -CIPR500T10 PO; -DICL100G60 TP; -FLUT16H NS; -LACT-441 PO; -LINA145C PO; -LOSA25TA41 PO; -ONDA-104 PO
[2025-02-18 07:08] VITALS: BP 159/64; PULSE 73; RESP 17; TEMP 97.7
[2025-02-18 07:23] LABS: IMMATURE GRANULOCYTE ABSOLUTE 0.01 K/uL (0-1); NUCLEATED RED BLOOD CELLS 0.0 % (0.0-0.19); PLATELET COUNT (AUTO) 17 K/uL (130-400); RED BLOOD CELL COUNT(AUTO) 3.93 MIL/uL (4.00-5.50); RED CELL DISTRIBUTION WIDTH 14.4 % (11.0-15.5); WHITE BLOOD COUNT (AUTO) 1.9 K/uL (4.8-10.8)
--- NOTE | 2025-02-18 08:56 | NUR ---
PATIENT CANCELLED DUE TO LOW WBC 1.8, PATIENT TO F/U IN OFFICE
== END 2025-02-18 08:45 | disposition home or self-care (01) ==
LOC: DAH 06:40 → ENDO 06:40
PROVIDERS: ATTEND Internal Medicine Gastroenterology
DX: R12 Heartburn (principal); Z53.8 Procedure and treatment not carried out for other reasons; K74.60 Unspecified cirrhosis of liver; I85.00 Esophageal varices without bleeding; I10 Essential (primary) hypertension; K59.04 Chronic idiopathic constipation; E66.09 Other obesity due to excess calories; Z68.39 Body mass index [BMI] 39.0-39.9, adult; Z90.49 Acquired absence of other specified parts of digestive tract; Z90.710 Acquired absence of both cervix and uterus; Z98.891 History of uterine scar from previous surgery; Z98.890 Other specified postprocedural states
CPT/HCPCS: 85025; 82948; 36415; J7030